=== PATIENT | female | born 1960 | race American Indian/Alaskan Native ===

== ENCOUNTER 2016-10-13 15:01 | Emergency (ER) | payer MEDICAID ==
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
[2016-10-13 15:25] VITALS: BP 140/86
--- NOTE | 2016-10-13 15:35 | CR ---
Clinical history: 56-year-old female injured left knee (fall). 3 views confirm small suprapatellar bursal effusion this patient with chronic severe degenerative an d destructive arthritic changes of patellofemoral and knee joint. No foreign bodies. No sign of right knee fracture, dislocation or radiopaque loose joint body. CONCLUSION: Severe osteoarthritis. No fractures.
[2016-10-13] MEDS ORDERED: Ketorolac 30 MG/ML SDV IM ONE (15:36)
[2016-10-13] MEDS ORDERED: Acetaminophen/HYDROcodone 325-5 MG Tab PO ONE (15:37)
== END 2016-10-13 16:30 | disposition home or self-care (01) ==
LOC: DL.ED 15:01
DX: S83.92XA Sprain of unspecified site of left knee, initial encounter (principal); M17.12 Unilateral primary osteoarthritis, left knee; K21.9 Gastro-esophageal reflux disease without esophagitis; E11.9 Type 2 diabetes mellitus without complications; E66.9 Obesity, unspecified; F41.9 Anxiety disorder, unspecified; Z91.041 Radiographic dye allergy status; Z91.018 Allergy to other foods; Z88.8 Allergy status to other drugs, medicaments and biological substances; W18.09XA Striking against other object with subsequent fall, initial encounter; Y92.009 Unspecified place in unspecified non-institutional (private) residence as the place of occurrence of the external cause
CPT/HCPCS: 73562; 96374; 99283; A9270; J1885

== ENCOUNTER 2016-10-22 17:08 | Emergency (ER) | payer MEDICAID ==
[2016-10-22 17:44] VITALS: BP 145/92
[2016-10-22] MEDS ORDERED: Sodium Chloride 0.9% 10 ML Syringe FLUSH PRN (17:44)
[2016-10-22] MEDS ORDERED: Ketorolac 30 MG/ML SDV IVPUSH ONE (17:44)
[2016-10-22] MEDS ORDERED: cefTRIAXone 500 MG Vial IVPUSH ONE (17:44)
[2016-10-22] MEDS ORDERED: methylPREDNISolone Sodium Succinate 125 MG/2 ML SDV IVPUSH ONE (17:44)
[2016-10-22] MEDS ORDERED: HYDROmorphone 1 MG/ML Syringe IVPUSH ONE (17:45)
[2016-10-22] MEDS ORDERED: Ondansetron 4 MG/2 ML SDV IV ONE (17:45)
[2016-10-22] MEDS ORDERED: cefTRIAXone 1 GM in Sodium Chloride 0.9% 50 ML IV ONE (17:57)
[2016-10-22 18:20] LABS: CHLORIDE,CL 99 mmol/L (101-111); SODIUM,NA 135 mmol/L (135-145)
--- NOTE | 2016-10-24 10:21 | ER ---
SUBJECTIVE: The patient is a 56-year-old female, who has a history of peritonsillar abscess, who comes in today with the same on the left side. It has been going on for 3 days. She is spitting up some blood, having a hard time to swallow her pills or food. She can take some fluid. She has a fever, but cannot take medicines to control it. She does not have any shortness of breath or wheezing, but has a headache and neck pain on the left side radiating up into her ear and head, feels feverish, much pain, and much malaise. Unsure why she waited 3 days to come in. She does have a history of this before. She required a PICC line, hospitalization, and intensive treatment per history. PAST MEDICAL HISTORY: She had tooth extractions, GERD, , osteoarthritis, chronic knee pain, diabetes, obesity, anxiety and panic attack, history of Clostridium difficile, previous peritonsillar abscesses requiring a PICC line and hospitalization. CURRENT MEDICATIONS: Include: 1. Alprazolam 1 tablet p.o. t.i.d. p.r.n. 2. Hydrocodone 1 tablet p.o. daily p.r.n. 3. Ibuprofen 400 mg p.o. p.r.n. ALLERGIES: She is allergic to epinephrine causes difficulty breathing. Lidocaine causes difficulty breathing. Pineapple causes hives. CT dye causes hives. SOCIAL HISTORY: Noncontributory. REVIEW OF SYSTEMS: Headache. Neck pain radiates to the head and left side, sinuses, and ear, it has been going on for 3 days. Painful swallowing, not wanted to swallow pills. Decreased intake of food and fluid because of painful swallowing. No shortness of breath, occasional cough. No nausea or vomiting. No diarrhea, bowel or bladder changes. Denies . Denies trauma or assault. OBJECTIVE: Vital Signs: Her temperature is 100.2, heart rate is 119, blood pressure is 145/92, respiratory rate 16, oxygen is 96% room air. General: She is anxious crying, tearful HEENT: Normocephalic and atraumatic. Right ear is normal. No mastoid issues or sinus issues, but the left is swollen, tense, very painful to her. It affects the left lateral face and neck area. She does answer all questions and can speak in fairly normal voice, oropharynx shows a very large peritonsillar left-sided abscess. It is extended over to the midline. She still has a patent airway. She does have some spitting and drooling, but she is able to swallow her secretions okay. Occasional cough, which hurts her a great deal. When she is able to be made to relax, she does much better. She becomes anxious. Chest: Clear. CV: RR. Skin: Non-unremarkable. LAB/STUDIES: At the time of this note, the patient was getting ready for transfer, a CBC with auto diff, CMP, double blood cultures, lactic acid, were all requested, and they are all pending at this time. They will certainly be sent with the patient as they become available. ER COURSE: The patient was given 1 g of Rocephin IV after cultures were obtained. She was also given 30 mg of IV Toradol and 1 mg of hydromorphone and 4 mg IV Zofran. She was carefully monitored and watched and remained stable, but will definitely need to be transferred to ENT, so she can have this drained while she can have protection of her airway. ASSESSMENT: 1. Very large left peritonsillar abscess, growing over 3 days, now beginning to obstruct airway and oropharynx. 2. History of large peritonsillar abscess requiring PICC line and previous surgical intervention. PLAN: The patient will be transferred via ambulance to Dr. Sawyer at [facility] in [place]. She will go directly to the ER. They will contact ENT. All records will be sent to us when they become available. [facility] /[id number]
== END 2016-10-22 18:52 ==
LOC: DL.ED 17:08
DX: J36 Peritonsillar abscess (principal); K21.9 Gastro-esophageal reflux disease without esophagitis; M19.90 Unspecified osteoarthritis, unspecified site; E11.9 Type 2 diabetes mellitus without complications; E66.9 Obesity, unspecified; F41.9 Anxiety disorder, unspecified; Z88.8 Allergy status to other drugs, medicaments and biological substances; Z91.041 Radiographic dye allergy status; Z91.018 Allergy to other foods
CPT/HCPCS: 36415; 80053; 83605; 85025; 87040; 96365; 96375; 99284; J0696; J1170; J1885; J2405; J2930; J7050

== ENCOUNTER 2016-12-13 23:10 | Emergency (ER) | payer MEDICAID ==
[2016-12-13 23:28] VITALS: BP 114/85
[2016-12-13] MEDS ORDERED: Acetaminophen/HYDROcodone 325-10 MG Tab PO ONE (23:32)
--- NOTE | 2016-12-13 23:35 | EDM.PDOC ---
ED HPI GENERAL MEDICAL PROBLEM - General Chief Complaint: Lower Extremity Injury/Pain Stated Complaint: L KNEE PAIN Time Seen by Provider: 12/13/16 23:26 Source of Information: Reports: Patient History Limitations: Reports: No limitations - History of Present Illness INITIAL COMMENTS - FREE TEXT/NARRATIVE: This 56 yo female patient reports to the ED with chronic left knee pain that gets worse at night. The patient reports she has had increased pain in the past 2 days. The patient has been taking her Athens (5/325) as prescribed and took Aleve today, but continues to have knee pain. The patient reports she contacted her primary (Dr. Keller) and was advised to come to the ED if she has any additional pain. The patient reports she is scheduled to see Dr. James ( Orthopedics) on January 06 to look at getting a knee replacement. The patient reports she is also allergic to Toradol as she gets large red circles around the injection site. The patient reported to the ED with crutches, but no knee brace. The patient reports she does have a knee brace at home, but does not like to wear it because it pushes on her knee. The patient has not attempted to use heat or ice. 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, Other medication(s) Left Knee Pain Score (Numeric/FACES): 8 - Related Data Allergies Allergy/AdvReac Type Severity Reaction Status Date / Time epinephrine Allergy Difficulty Verified 12/13/16 23:31 Breathing Iodinated Contrast Media - Allergy Hives Verified 12/13/16 23:31 Oral and lidocaine Allergy Difficulty Verified 12/13/16 23:31 Breathing pineapple [Pineapple] Allergy Hives Verified 12/13/16 23:31 Home Meds: Home Meds ALPRAZolam [Xanax] 1 tab PO TID PRN 12/26/15 [History] Hydrocodone/Acetaminophen [Hydrocodon-Acetaminophen 5-325] 1 tab PO ASDIRECTED PRN 10/13/16 [History] Ibuprofen 400 mg PO ASDIRECTED PRN 10/13/16 [History] Past Medical History - Past Health History Medical/Surgical History: Denies Medical/Surgical History Cardiovascular History: Reports: None Respiratory History: Reports: None Gastrointestinal History: Reports: GERD 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 History: Reports: None 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: Musculoskeletal History: Reports: Arthritis, Osteoarthritis Other Musculoskeletal History: CHRONIC L)KNEE PAIN Neurological History: Reports: None Psychiatric History: Reports: Anxiety, Panic attack Endocrine/Metabolic History: Reports: Diabetes, type II, Obesity/BMI 30+ Hematologic History: Reports: None Immunologic History: Reports: None Oncologic (Cancer) History: Reports: None - Infectious Disease History Infectious Disease History: Reports: C-difficile - Past Surgical History Other HEENT Surgeries/Procedures: tooth extraction Social & Family History - Family History Family Medical History: Noncontributory Cardiac: Reports: CAD, High cholesterol, Heart failure, Hypertension Respiratory: Reports: Asthma, COPD : Reports: Renal disease/insufficiency Musculoskeletal: Reports: Back pain, chronic Neurological: Reports: CVA Psychiatric: Reports: Anxiety, Depression Endocrine/Metabolic: Reports: Diabetes, type II, Obesity/MBI 30+ - Tobacco Use Smoking Status *Q: Unknown Ever Smoked Second Hand Smoke Exposure: No - Caffeine Use Caffeine Use: Reports: Coffee - Alcohol Use Days Per Week of Alcohol Use: 0 - Recreational Drug Use Recreational Drug Use: No Drug Use in Last 12 Months: No Recreational Drug Type: Reports: Marijuana/Hashish - Living Situation & Occupation Living situation: Reports: with family Occupation: unemployed Review of Systems - Review of Systems Review Of Systems: ROS reveals no pertinent complaints other than HPI. Trauma Exam - Physical Exam Exam: See Below Exam Limited By: No limitations General Appearance: Reports: alert, WD/WN, moderate distress, obese Head: Reports: atraumatic, normocephalic Eyes: bilateral eye: EOMI, normal inspection, PERRL Ears: Reports: normal external exam, normal canal, hearing grossly normal, normal TMs Nose: Reports: normal inspection, normal mucousa, no blood Throat/Mouth: Reports: Normal inspection, Normal lips, Normal teeth, Normal gums , Normal oropharynx, Normal voice, No airway compromise Neck: Reports: non-tender, full range of motion, normal alignment, normal inspection Respiratory Exam: Reports: no respiratory distress, lungs clear, normal breath sounds Cardiovascular: Reports: normal peripheral pulses, regular rate, rhythm, no edema, no gallop, no JVD, no murmur, no rub GI/Abdominal: Reports: Normal Bowel Sounds, Soft, Non-Tender, No Organomegaly, No Distention, No Abnormal Bruit, No Mass (Female) Exam: Deferred Rectal (Female) Exam: Deferred Extremities: Pain with Movement (left knee), Tenderness (left knee) 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, no motor/sensory deficits, alert , normal mood/affect, oriented x 3 Skin: Reports: Normal color, Warm/dry - [place] Coma Score Best Eye Response (Jhonatan): (4) open spontaneously Best Verbal Response (Jhonatan): (5) oriented Best Motor Response ([place]): (6) obeys commands Jhonatan Total: 15 Course - Vital Signs Last Recorded V/S: Last Vital Signs Temp 36.3 C 12/13/16 23:27 Pulse 73 12/13/16 23:27 Resp 20 12/13/16 23:27 BP 114/85 12/13/16 23:27 Pulse Ox 100 12/13/16 23:27 - Orders/Labs/Meds Meds: Medications Discontinued Medications Generic Name Dose Route Start Last Admin Trade Name Reza PRN Reason Stop Dose Admin Hydrocodone Bitart/Acetaminophen 1 tab 12/13/16 23:32 Athens 325-10 Mg PO 12/13/16 23:33 ONETIME ONE Departure - Departure Time of Disposition: 11:33 Disposition: Home, Self-Care 01 Condition: fair Clinical Impression: Chronic pain of left knee - Discharge Information Instructions: Pain Medicine Instructions, Dipy-ho-Cumn, Knee Pain Forms: ED Department Discharge Care Plan Goals: The patient was advised of the examination results during the visit. The patient was given an oral dose of [place] (10/325) while in the ED. The patient was encouraged to contact her primary care facility and the business office specialist for continued evaluation and management. If the patient has any additional symptoms or concerns, the patient should visit her primary care facility.
== END 2016-12-13 23:43 | disposition home or self-care (01) ==
LOC: DL.ED 23:10
DX: M25.562 Pain in left knee (principal); G89.29 Other chronic pain; K21.9 Gastro-esophageal reflux disease without esophagitis; F41.9 Anxiety disorder, unspecified; E11.9 Type 2 diabetes mellitus without complications; E66.9 Obesity, unspecified; Z88.8 Allergy status to other drugs, medicaments and biological substances
CPT/HCPCS: 99283; A9270

== ENCOUNTER 2016-12-22 20:37 | Emergency (ER) | payer MEDICAID, OTHER ==
[2016-12-22] MEDS ORDERED: Promethazine 25 MG/ML SDV IM ONE (21:45)
[2016-12-22] MEDS ORDERED: Morphine 2 MG/ML Syringe IM ONE (21:45)
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
[2016-12-22] MEDS ORDERED: Acetaminophen/HYDROcodone 325-10 MG Tab PO ONE (23:27)
== END 2016-12-22 23:38 | disposition home or self-care (01) ==
LOC: DL.ED 20:37
DX: S80.02XA Contusion of left knee, initial encounter (principal); M62.830 Muscle spasm of back; K21.9 Gastro-esophageal reflux disease without esophagitis; F41.9 Anxiety disorder, unspecified; E11.9 Type 2 diabetes mellitus without complications; E66.9 Obesity, unspecified; M19.90 Unspecified osteoarthritis, unspecified site; Z88.8 Allergy status to other drugs, medicaments and biological substances; Z91.018 Allergy to other foods; V49.9XXA Car occupant (driver) (passenger) injured in unspecified traffic accident, initial encounter
CPT/HCPCS: 72080; 73562; 96372; 99284; A9270; J2270; J2550

== ENCOUNTER 2017-04-01 13:29 | Emergency (ER) | payer MEDICAID ==
[2017-04-01 16:12] VITALS: BP 124/96
[2017-04-01] MEDS ORDERED: Ketorolac 30 MG/ML SDV IM ONE (16:49)
--- NOTE | 2017-04-01 16:50 | EDM.PDOC ---
<Ulisses Diaz - Last Filed: 04/01/17 20:20> ED HPI GENERAL MEDICAL PROBLEM - General Chief Complaint: Lower Extremity Injury/Pain Stated Complaint: RT LEG INFECTED Time Seen by Provider: 04/01/17 16:44 - Related Data Allergies Allergy/AdvReac Type Severity Reaction Status Date / Time epinephrine Allergy Difficulty Verified 04/01/17 14:33 Breathing Iodinated Contrast- Oral and Allergy Hives Verified 04/01/17 14:33 IV Dye [Iodinated Contrast Media - Oral and] ketorolac [From Toradol] Allergy Rash Verified 04/01/17 17:06 lidocaine Allergy Difficulty Verified 04/01/17 14:33 Breathing pineapple [Pineapple] Allergy Hives Verified 04/01/17 14:33 Home Meds: Home Meds ALPRAZolam [Xanax] 1 tab PO TID PRN 12/26/15 [History] Hydrocodone/Acetaminophen [Hydrocodon-Acetaminophen 5-325] 1 tab PO ASDIRECTED PRN 10/13/16 [History] Ibuprofen 800 mg PO ASDIRECTED PRN 10/13/16 [History] Review of Systems - Review of Systems Review Of Systems: ROS reveals no pertinent complaints other than HPI. ED EXAM, GENERAL - Physical Exam Exam: See Below Exam Limited By: No Limitations General Appearance: Alert, WD/WN, Mild Distress, Other (pain) Ears: Hearing Grossly Normal Throat/Mouth: Normal Voice, No Airway Compromise Head: Atraumatic Neck: Non-Tender, Full Range of Motion Respiratory/Chest: No Respiratory Distress Cardiovascular: Regular Rate, Rhythm GI/Abdominal: Soft, Non-Tender Extremities: Other (right leg wound dehiscence with cellulitis mild lymphangitis , NV wnl) Neurological: Alert, Oriented, Normal Cognition, No Motor/Sensory Deficits, Other (gait limited to pain) Psychiatric: Tearful Skin Exam: Warm, Dry, Normal Color Lymphatic: No Adenopathy Course - Vital Signs Last Recorded V/S: Last Vital Signs Temp 97.3 F 04/01/17 16:12 Pulse 75 04/01/17 16:12 Resp 18 04/01/17 16:12 BP 124/96 H 04/01/17 16:12 Pulse Ox 100 04/01/17 16:12 - Orders/Labs/Meds Orders: Active Orders 24 hr Category Date Time Status CULTURE BLOOD [BC] Stat Lab 04/01/17 18:55 Received Labs: Laboratory Tests 04/01/17 04/01/17 04/01/17 Range/Units 17:05 17:05 17:05 WBC 9.2 (5.0-10.0) 10^3/uL RBC 4.56 (4.2-5.4) 10^6/uL Hgb 12.0 (12.0-16.0) g/dL Hct 38.0 (37.0-47.0) % MCV 83.3 (80-100) fL MCH 26.3 L (27.0-34.0) pg MCHC 31.6 L (33.0-35.0) g/dL Plt Count 368 (150-450) 10^3/uL Neut % (Auto) 46.0 (42.2-75.2) % Lymph % (Auto) 42.6 (20.5-50.1) % Charles % (Auto) 5.2 (2-8) % Eos % (Auto) 6.0 H (1.0-3.0) % Baso % (Auto) 0.2 (0.0-1.0) % Sodium 143 (135-145) mmol/L Potassium 3.7 (3.6-5.0) mmol/L Chloride 106 (101-111) mmol/L Carbon Dioxide 27.0 (21.0-31.0) mmol/L Anion Gap 13.7 BUN 13 (7-18) mg/dL Creatinine 0.6 (0.6-1.3) mg/dL Est Cr Clr Drug Dosing 92.56 mL/min Estimated GFR (MDRD) > 60 Glucose 113 H (74-105) mg/dL Lactic Acid (0.5-2.2) mmol/L Calcium 8.9 (8.4-10.2) mg/dl C-Reactive Protein 2.6 H (0.0-1.3) mg/dL 04/01/17 Range/Units 18:55 WBC (5.0-10.0) 10^3/uL RBC (4.2-5.4) 10^6/uL Hgb (12.0-16.0) g/dL Hct (37.0-47.0) % MCV (80-100) fL MCH (27.0-34.0) pg MCHC (33.0-35.0) g/dL Plt Count (150-450) 10^3/uL Neut % (Auto) (42.2-75.2) % Lymph % (Auto) (20.5-50.1) % Charles % (Auto) (2-8) % Eos % (Auto) (1.0-3.0) % Baso % (Auto) (0.0-1.0) % Sodium (135-145) mmol/L Potassium (3.6-5.0) mmol/L Chloride (101-111) mmol/L Carbon Dioxide (21.0-31.0) mmol/L Anion Gap BUN (7-18) mg/dL Creatinine (0.6-1.3) mg/dL Est Cr Clr Drug Dosing mL/min Estimated GFR (MDRD) Glucose (74-105) mg/dL Lactic Acid 1.1 (0.5-2.2) mmol/L Calcium (8.4-10.2) mg/dl C-Reactive Protein (0.0-1.3) mg/dL Meds: Medications Discontinued Medications Generic Name Dose Route Start Last Admin Trade Name Freq PRN Reason Stop Dose Admin Hydromorphone HCl 1 mg 04/01/17 20:37 04/01/17 20:41 Dilaudid IVPUSH 04/01/17 20:38 1 mg ONETIME ONE Administration Clindamycin Phosphate 900 mg/ 106 mls @ 200 mls/hr 04/01/17 18:46 04/01/17 19 :11 Sodium Chloride IV 04/01/17 19:17 200 mls/hr ONETIME ONE Administration Sodium Chloride 1,000 mls @ 500 mls/hr 04/01/17 18:46 04/01/17 19:05 Normal Saline IV 04/01/17 20:45 500 mls/hr .BOLUS ONE Administration Ketorolac Tromethamine 30 mg 04/01/17 16:49 04/01/17 17:25 Toradol IM 04/01/17 16:50 Not Given ONETIME ONE Morphine Sulfate 2 mg 04/01/17 18:46 04/01/17 19:08 Morphine IVPUSH 04/01/17 18:47 2 mg ONETIME ONE Administration Ondansetron HCl 4 mg 04/01/17 18:46 04/01/17 19:06 Zofran IV 04/01/17 18:47 4 mg ONETIME ONE Administration Tramadol HCl 100 mg 04/01/17 17:10 04/01/17 17:25 Ultram PO 04/01/17 17:11 Not Given ONETIME ONE - Re-Assessments/Exams Free Text/Narrative Re-Assessment/Exam: 04/01/17 18:47 re-exam; s/p flavio 2 week ago, wound looks worse. right soria wound dehiscence local cellulitis minimal lymphangitis, no exudate. partial staple removal from clinic. 04/01/17 20:[address] Mullins who came to evnh' wound and rec' for surgical consult. Dr Cesar @ kindly accepted pt. Departure - Departure Time of Disposition: 20:21 Disposition: DC/Tfer to [facility] 02 Condition: Fair Clinical Impression: Wound infection, posttraumatic, Cellulitis of leg without foot, right, Wound dehiscence - Discharge Information Referrals: PCP,None [Ordering Only Provider] - Forms: Interfacility Transfer EMTALA <Ca Barba - Last Filed: 04/02/17 07:04> ED HPI GENERAL MEDICAL PROBLEM - General Source of Information: Reports: Patient History Limitations: Reports: No Limitations - History of Present Illness INITIAL COMMENTS - FREE TEXT/NARRATIVE: 56 yo female presents with pain to right soria s/p open wound from fall 2 weeks ago. was seen in clinic and had some flavio removed and started on antibiotic, pt believes to be doxycycline. C/o warmth, drainage and pain. no other complaints. 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: Musculoskeletal History: Reports: Arthritis, Osteoarthritis Other Musculoskeletal History: CHRONIC L)KNEE PAIN Neurological History: Reports: None Psychiatric History: Reports: Anxiety, Panic Attack Endocrine/Metabolic History: Reports: Diabetes, Type II, Obesity/BMI 30+ Hematologic History: Reports: None Immunologic History: Reports: None Oncologic (Cancer) History: Reports: None Dermatologic History: Reports: None - Infectious Disease History Infectious Disease History: Reports: C-Difficile - Past Surgical History HEENT Surgical History: Reports: Other (See Below) Social & Family History - Family History Family Medical History: Noncontributory Cardiac: Reports: CAD, High Cholesterol, Heart Failure, Hypertension Respiratory: Reports: Asthma, COPD : Reports: Renal Disease/Insufficiency Musculoskeletal: Reports: Back pain, Chronic Neurological: Reports: CVA Psychiatric: Reports: Anxiety, Depression Endocrine/Metabolic: Reports: Diabetes, type II, Obesity/MBI 30+ - Tobacco Use Smoking Status *Q: Never Smoker Second Hand Smoke Exposure: No - Caffeine Use Caffeine Use: Reports: Coffee - Alcohol Use Days Per Week of Alcohol Use: 0 - Recreational Drug Use Recreational Drug Use: No Drug Use in Last 12 Months: No Recreational Drug Type: Reports: Marijuana/Hashish - Living Situation & Occupation Living situation: Reports: with Family Occupation: Unemployed ED EXAM, GENERAL - Physical Exam Skin Exam: Wound/Incision (v shaped laceration with necrotic area at anterior borders, [address] to right wound margin, [address] to left wound margins. No drainage noted. Open wound to inferior margin. ) Course - Orders/Labs/Meds Orders: Active Orders 24 hr Category Date Time Status CULTURE BLOOD [BC] Stat Lab 04/01/17 18:55 Received Labs: Laboratory Tests 04/01/17 04/01/17 04/01/17 Range/Units 17:05 17:05 17:05 WBC 9.2 (5.0-10.0) 10^3/uL RBC 4.56 (4.2-5.4) 10^6/uL Hgb 12.0 (12.0-16.0) g/dL Hct 38.0 (37.0-47.0) % MCV 83.3 (80-100) fL MCH 26.3 L (27.0-34.0) pg MCHC 31.6 L (33.0-35.0) g/dL Plt Count 368 (150-450) 10^3/uL Neut % (Auto) 46.0 (42.2-75.2) % Lymph % (Auto) 42.6 (20.5-50.1) % Charles % (Auto) 5.2 (2-8) % Eos % (Auto) 6.0 H (1.0-3.0) % Baso % (Auto) 0.2 (0.0-1.0) % Sodium 143 (135-145) mmol/L Potassium 3.7 (3.6-5.0) mmol/L Chloride 106 (101-111) mmol/L Carbon Dioxide 27.0 (21.0-31.0) mmol/L Anion Gap 13.7 BUN 13 (7-18) mg/dL Creatinine 0.6 (0.6-1.3) mg/dL Est Cr Clr Drug Dosing 92.56 mL/min Estimated GFR (MDRD) > 60 Glucose 113 H (74-105) mg/dL Lactic Acid (0.5-2.2) mmol/L Calcium 8.9 (8.4-10.2) mg/dl C-Reactive Protein 2.6 H (0.0-1.3) mg/dL 04/01/17 Range/Units 18:55 WBC (5.0-10.0) 10^3/uL RBC (4.2-5.4) 10^6/uL Hgb (12.0-16.0) g/dL Hct (37.0-47.0) % MCV (80-100) fL MCH (27.0-34.0) pg MCHC (33.0-35.0) g/dL Plt Count (150-450) 10^3/uL Neut % (Auto) (42.2-75.2) % Lymph % (Auto) (20.5-50.1) % Charles % (Auto) (2-8) % Eos % (Auto) (1.0-3.0) % Baso % (Auto) (0.0-1.0) % Sodium (135-145) mmol/L Potassium (3.6-5.0) mmol/L Chloride (101-111) mmol/L Carbon Dioxide (21.0-31.0) mmol/L Anion Gap BUN (7-18) mg/dL Creatinine (0.6-1.3) mg/dL Est Cr Clr Drug Dosing mL/min Estimated GFR (MDRD) Glucose (74-105) mg/dL Lactic Acid 1.1 (0.5-2.2) mmol/L Calcium (8.4-10.2) mg/dl C-Reactive Protein (0.0-1.3) mg/dL Meds: Medications Discontinued Medications Generic Name Dose Route Start Last Admin Trade Name Reza PRN Reason Stop Dose Admin Hydromorphone HCl 1 mg 04/01/17 20:37 04/01/17 20:41 Dilaudid IVPUSH 04/01/17 20:38 1 mg ONETIME ONE Administration Clindamycin Phosphate 900 mg/ 106 mls @ 200 mls/hr 04/01/17 18:46 04/01/17 19 :11 Sodium Chloride IV 04/01/17 19:17 200 mls/hr ONETIME ONE Administration Sodium Chloride 1,000 mls @ 500 mls/hr 04/01/17 18:46 04/01/17 19:05 Normal Saline IV 04/01/17 20:45 500 mls/hr .BOLUS ONE Administration Ketorolac Tromethamine 30 mg 04/01/17 16:49 04/01/17 17:25 Toradol IM 04/01/17 16:50 Not Given ONETIME ONE Morphine Sulfate 2 mg 04/01/17 18:46 04/01/17 19:08 Morphine IVPUSH 04/01/17 18:47 2 mg ONETIME ONE Administration Ondansetron HCl 4 mg 04/01/17 18:46 04/01/17 19:06 Zofran IV 04/01/17 18:47 4 mg ONETIME ONE Administration Tramadol HCl 100 mg 04/01/17 17:10 04/01/17 17:25 Ultram PO 04/01/17 17:11 Not Given ONETIME ONE
[2017-04-01] MEDS ORDERED: traMADol 50 MG Tab PO ONE (17:10)
[2017-04-01 17:42] LABS: CHLORIDE,CL 106 mmol/L (101-111); SODIUM,NA 143 mmol/L (135-145)
[2017-04-01] MEDS ORDERED: Morphine 2 MG/ML Syringe IVPUSH ONE (18:46)
[2017-04-01] MEDS ORDERED: Sodium Chloride 0.9% 1,000 ML IV ONE (18:46)
[2017-04-01] MEDS ORDERED: Ondansetron 4 MG/2 ML SDV IV ONE (18:46)
[2017-04-01] MEDS ORDERED: Clindamycin Phosphate 900 MG in Sodium Chloride 0.9% 100 ML IV ONE (18:46)
[2017-04-01] MEDS ORDERED: HYDROmorphone 1 MG/ML Syringe IVPUSH ONE (20:37)
== END 2017-04-01 21:05 ==
LOC: DL.ED 13:29
DX: T81.33XA Disruption of traumatic injury wound repair, initial encounter (principal); L03.115 Cellulitis of right lower limb; M19.90 Unspecified osteoarthritis, unspecified site; F41.0 Panic disorder [episodic paroxysmal anxiety]; E66.9 Obesity, unspecified; E11.9 Type 2 diabetes mellitus without complications; Z88.6 Allergy status to analgesic agent; Z88.8 Allergy status to other drugs, medicaments and biological substances; Z91.041 Radiographic dye allergy status; Z68.41 Body mass index [BMI] 40.0-44.9, adult
CPT/HCPCS: 36415; 73590; 80048; 83605; 85025; 86140; 87040; 96361; 96365; 96375; 99285; J1170; J2270; J2405; J7030; J7050; S0077

== ENCOUNTER 2017-04-16 19:27 | Emergency (ER) | payer MEDICAID ==
[2017-04-16 20:39] VITALS: BP 132/75
[2017-04-16] MEDS ORDERED: HYDROmorphone 1 MG/ML Syringe IM ONE (21:34)
--- NOTE | 2017-04-16 21:39 | EDM.PDOC ---
ED HPI GENERAL MEDICAL PROBLEM - General Chief Complaint: Lower Extremity Injury/Pain Stated Complaint: HAD SURGERY ON LEG, PAIN [id number] Time Seen by Provider: 04/16/17 21:30 Source of Information: Reports: Patient History Limitations: Reports: No Limitations - History of Present Illness INITIAL COMMENTS - FREE TEXT/NARRATIVE: This 56 yo female patient reports to the ED with increased pain in her right lower leg and right lateral thigh. The patient recently got out of [facility] in [place] this past week (Monday). The patient reports she has been taking her pain medications as directed, but continues to have pain in the leg. 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 Right Upper Leg Pain Score (Numeric/FACES): 7 Right Lower Leg Pain Score (Numeric/FACES): 6 - Related Data Allergies Allergy/AdvReac Type Severity Reaction Status Date / Time epinephrine Allergy Difficulty Verified 04/16/17 20:39 Breathing Iodinated Contrast- Oral and Allergy Hives Verified 04/16/17 20:39 IV Dye [Iodinated Contrast Media - Oral and] ketorolac [From Toradol] Allergy Rash Verified 04/16/17 20:39 lidocaine Allergy Difficulty Verified 04/16/17 20:39 Breathing pineapple [Pineapple] Allergy Hives Verified 04/16/17 20:39 Home Meds: Home Meds ALPRAZolam [Xanax] 1 tab PO TID PRN 12/26/15 [History] Hydrocodone/Acetaminophen [Hydrocodon-Acetaminophen 5-325] 1 tab PO ASDIRECTED PRN 10/13/16 [History] Amoxicillin/Potassium Clav [Augmentin 875-125 Tablet] 1 tab PO BID 04/16/17 [ History] Omeprazole 20 mg PO DAILY PRN 04/16/17 [History] metFORMIN [Glucophage XR] 500 mg PO BIDMEALS 04/16/17 [History] Past Medical History - Past Health History Medical/Surgical History: Denies Medical/Surgical History HEENT History: Reports: None Cardiovascular History: Reports: None Respiratory History: Reports: None Gastrointestinal History: Reports: GERD 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: Musculoskeletal History: Reports: Arthritis, Osteoarthritis Other Musculoskeletal History: CHRONIC L)KNEE PAIN Neurological History: Reports: None Psychiatric History: Reports: Anxiety, Panic Attack Endocrine/Metabolic History: Reports: Diabetes, Type II, Obesity/BMI 30+ Hematologic History: Reports: None Immunologic History: Reports: None Oncologic (Cancer) History: Reports: None Dermatologic History: Reports: Other (See Below) Other Dermatologic History: skin graft to right lower leg - Infectious Disease History Infectious Disease History: Reports: C-Difficile - Past Surgical History HEENT Surgical History: Reports: Other (See Below) Social & Family History - Family History Family Medical History: Noncontributory Cardiac: Reports: CAD, High Cholesterol, Heart Failure, Hypertension Respiratory: Reports: Asthma, COPD : Reports: Renal Disease/Insufficiency Musculoskeletal: Reports: Back pain, Chronic Neurological: Reports: CVA Psychiatric: Reports: Anxiety, Depression Endocrine/Metabolic: Reports: Diabetes, type II, Obesity/MBI 30+ - Tobacco Use Smoking Status *Q: Unknown Ever Smoked Second Hand Smoke Exposure: No - Caffeine Use Caffeine Use: Reports: Coffee - Alcohol Use Days Per Week of Alcohol Use: 0 - Recreational Drug Use Recreational Drug Use: No Drug Use in Last 12 Months: No Recreational Drug Type: Reports: Marijuana/Hashish - Living Situation & Occupation Living situation: Reports: with Family Occupation: Unemployed Review of Systems - Review of Systems Review Of Systems: ROS reveals no pertinent complaints other than HPI. ED EXAM, GENERAL - Physical Exam Exam: See Below Exam Limited By: No Limitations General Appearance: Alert, WD/WN, Mild Distress, Obese Eye Exam: Bilateral Eye: EOMI, Normal Inspection, PERRL Ears: Normal External Exam Nose: Normal Inspection, Normal Mucosa, No Blood Throat/Mouth: Normal Inspection, Normal Lips, Normal Teeth, Normal Gums, Normal Oropharynx, Normal Voice, No Airway Compromise Head: Atraumatic, Normocephalic Neck: Normal Inspection, Supple, Non-Tender, Full Range of Motion Respiratory/Chest: No Respiratory Distress, Lungs Clear, Normal Breath Sounds, No Accessory Muscle Use, Chest Non-Tender Cardiovascular: Normal Peripheral Pulses, Regular Rate, Rhythm, No Edema, No Gallop, No JVD, No Murmur, No Rub GI/Abdominal: Normal Bowel Sounds, Soft, Non-Tender, No Organomegaly, No Distention, No Abnormal Bruit, No Mass (Female) Exam: Deferred Rectal (Female) Exam: Deferred Back Exam: Normal Inspection, Full Range of Motion, NT Extremities: Other (The patients surgical sites appear to be healing appropriately with no apparent drainage) Neurological: Alert, Oriented, CN II-XII Intact, Normal Cognition, Normal Gait, Normal Reflexes, No Motor/Sensory Deficits Psychiatric: Normal Affect, Normal Mood Skin Exam: Warm, Dry, Intact, Normal Color, No Rash Lymphatic: No Adenopathy Course - Vital Signs Last Recorded V/S: Last Vital Signs Temp 36.7 C 04/16/17 20:20 Pulse 60 04/16/17 20:20 Resp 20 04/16/17 20:20 BP 132/75 04/16/17 20:20 Pulse Ox 100 04/16/17 20:20 - Orders/Labs/Meds Orders: Active Orders 24 hr Category Date Time Status HYDROmorphone [Dilaudid] Med 04/16/17 21:34 Once 1 mg IM ONETIME ONE Departure - Departure Time of Disposition: 21:39 Disposition: Home, Self-Care 01 Condition: Fair Clinical Impression: Right leg pain - Discharge Information Care Plan Goals: The patient was advised of the examination results during the visit. The patient was given an injection of Dilaudid while in the ED. The patient was encouraged to rest and elevate her right extremity. The patient should contact her surgeon regarding the continued pain. If the patient has any additional symptoms or concerns, the patient should follow-up with her primary care facility or return to the emergency department. - My Orders Last 24 Hours: My Active Orders 04/16/17 21:34 HYDROmorphone [Dilaudid] 1 mg IM ONETIME ONE - Assessment/Plan Last 24 Hours: My Active Orders 04/16/17 21:34 HYDROmorphone [Dilaudid] 1 mg IM ONETIME ONE
== END 2017-04-16 21:55 | disposition home or self-care (01) ==
LOC: DL.ED 19:27
DX: M79.661 Pain in right lower leg (principal); M79.651 Pain in right thigh; K21.9 Gastro-esophageal reflux disease without esophagitis; F41.0 Panic disorder [episodic paroxysmal anxiety]; E66.9 Obesity, unspecified; E11.9 Type 2 diabetes mellitus without complications; Z79.899 Other long term (current) drug therapy; Z88.6 Allergy status to analgesic agent; Z88.8 Allergy status to other drugs, medicaments and biological substances; Z91.041 Radiographic dye allergy status; Z91.018 Allergy to other foods; Z68.41 Body mass index [BMI] 40.0-44.9, adult; Z79.84 Long term (current) use of oral hypoglycemic drugs
CPT/HCPCS: 96372; 99283; J1170

== ENCOUNTER 2017-11-07 20:24 | Emergency (ER) | payer MEDICAID ==
[2017-11-07] MEDS ORDERED: ALPRAZolam 0.5 MG Tab PO ONE ×2 (20:25→21:35)
[2017-11-07] MEDS ORDERED: Aspirin 81 MG Tab.Chew PO ONE (20:39)
[2017-11-07 21:13] LABS: ANION GAP 10.3; CHLORIDE,CL 102 mmol/L (101-111); SODIUM,NA 134 mmol/L (135-145)
--- NOTE | 2017-11-07 21:44 | EDM.PDOC ---
ED HPI GENERAL MEDICAL PROBLEM - General Chief Complaint: Cardiovascular Problem Stated Complaint: [id number] THINKS HEART ATTACK NAUSEA TINGLING FINGER Time Seen by Provider: 11/07/17 20:50 Source of Information: Reports: Patient History Limitations: Reports: No Limitations - History of Present Illness INITIAL COMMENTS - FREE TEXT/NARRATIVE: This 57 yo female patient reports to the ED with increased anxiety, chest pain and numbness and tingling in her fingers (both hands). The patient reports she has been under a lot of stress lately, but today it really got to her. The patient reports she has been previously diagnosed with anxiety, but ran out of her Xanax and did not attempt to call her clinic to have it refilled. The patient reports when she was sitting at home, the patient began to have increased symptoms and vomited. After vomiting, the patient noticed the tingling in her hands. The patient then began to have anxiety of possibly having a heart attack. Onset: Today Onset Date: 11/20/17 Duration: Constant Location: Reports: Generalized Quality: Reports: Ache, Dull Severity: Moderate Improves with: Reports: None Worsens with: Reports: None Associated Symptoms: Reports: No Other Symptoms - Related Data Allergies Allergy/AdvReac Type Severity Reaction Status Date / Time epinephrine Allergy Difficulty Verified 11/07/17 20:46 Breathing Iodinated Contrast- Oral and Allergy Hives Verified 11/07/17 20:46 IV Dye [Iodinated Contrast Media - Oral and] ketorolac [From Toradol] Allergy Rash Verified 11/07/17 20:46 lidocaine Allergy Difficulty Verified 11/07/17 20:46 Breathing pineapple [Pineapple] Allergy Hives Verified 11/07/17 20:46 Home Meds: Home Meds ALPRAZolam [Xanax] 1 tab PO TID PRN 12/26/15 [History] Omeprazole 20 mg PO DAILY PRN 04/16/17 [History] metFORMIN [Glucophage XR] 500 mg PO BIDMEALS 04/16/17 [History] oxyCODONE 5 mg PO TID 11/07/17 [History] Past Medical History - Past Health History Medical/Surgical History: Denies Medical/Surgical History HEENT History: Reports: None, Impaired Vision Cardiovascular History: Reports: None Respiratory History: Reports: None Gastrointestinal History: Reports: GERD 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 History: Reports: None 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: Musculoskeletal History: Reports: Arthritis, Osteoarthritis Other Musculoskeletal History: CHRONIC L)KNEE PAIN Neurological History: Reports: None Psychiatric History: Reports: Anxiety, Panic Attack Endocrine/Metabolic History: Reports: Diabetes, Type II, Obesity/BMI 30+ Hematologic History: Reports: None Immunologic History: Reports: None Oncologic (Cancer) History: Reports: None Dermatologic History: Reports: Other (See Below) Other Dermatologic History: skin graft to right lower leg - Infectious Disease History Infectious Disease History: Reports: Chicken Pox - Past Surgical History HEENT Surgical History: Reports: Tonsillectomy, Other (See Below) Social & Family History - Family History Family Medical History: Noncontributory Cardiac: Reports: CAD, High Cholesterol, Heart Failure, Hypertension Other Cardiac Family History: Mother Respiratory: Reports: Asthma, COPD : Reports: Renal Disease/Insufficiency Other Family History: Sister. Musculoskeletal: Reports: Back pain, Chronic Neurological: Reports: CVA Psychiatric: Reports: Anxiety, Depression Endocrine/Metabolic: Reports: Diabetes, type II, Obesity/MBI 30+ - Tobacco Use Smoking Status *Q: Never Smoker Second Hand Smoke Exposure: Yes - Caffeine Use Caffeine Use: Reports: Coffee - Alcohol Use Days Per Week of Alcohol Use: 0 - Recreational Drug Use Recreational Drug Use: No Drug Use in Last 12 Months: No Recreational Drug Type: Reports: Marijuana/Hashish - Living Situation & Occupation Living situation: Reports: with Family Occupation: Unemployed ED ROS GENERAL - Review of Systems Review Of Systems: ROS reveals no pertinent complaints other than HPI. ED EXAM, GENERAL - Physical Exam Exam: See Below Exam Limited By: No Limitations General Appearance: Alert, WD/WN, Anxious, Moderate Distress Eye Exam: Bilateral Eye: EOMI, Normal Inspection, PERRL Ears: Normal External Exam, Normal Canal, Hearing Grossly Normal, Normal TMs Nose: Normal Inspection, Normal Mucosa, No Blood Throat/Mouth: Normal Inspection, Normal Lips, Normal Teeth, Normal Gums, Normal Oropharynx, Normal Voice, No Airway Compromise Head: Atraumatic, Normocephalic Neck: Normal Inspection, Supple, Non-Tender, Full Range of Motion Respiratory/Chest: No Respiratory Distress, Lungs Clear, Normal Breath Sounds, No Accessory Muscle Use, Chest Non-Tender Cardiovascular: Normal Peripheral Pulses, Regular Rate, Rhythm, No Edema, No Gallop, No JVD, No Murmur, No Rub GI/Abdominal: Normal Bowel Sounds, Soft, Non-Tender, No Organomegaly, No Distention, No Abnormal Bruit, No Mass (Female) Exam: Deferred Rectal (Female) Exam: Deferred Back Exam: Normal Inspection, Full Range of Motion, NT Extremities: Normal Inspection, Normal Range of Motion, Non-Tender, Normal Capillary Refill, No Pedal Edema Neurological: Alert, Oriented, CN II-XII Intact, Normal Cognition, Normal Gait, Normal Reflexes, No Motor/Sensory Deficits Psychiatric: Anxious Skin Exam: Warm, Dry, Intact, Normal Color, No Rash Lymphatic: No Adenopathy Course - Vital Signs Last Recorded V/S: Last Vital Signs Temp 35.7 C 11/07/17 21:42 Pulse 59 L 11/07/17 21:42 Resp 12 11/07/17 21:42 BP 140/68 11/07/17 21:42 Pulse Ox 100 11/07/17 21:42 - Orders/Labs/Meds Orders: Active Orders 24 hr Category Date Time Status EKG Documentation Completion [RC] URGENT Care 11/07/17 20:38 Active Labs: Laboratory Tests 11/07/17 11/07/17 Range/Units 20:43 20:43 WBC 12.5 H (5.0-10.0) 10^3/uL RBC 4.69 (4.2-5.4) 10^6/uL Hgb 12.3 (12.0-16.0) g/dL Hct 38.2 (37.0-47.0) % MCV 81.4 (80-100) fL MCH 26.2 L (27.0-34.0) pg MCHC 32.2 L (33.0-35.0) g/dL Plt Count 389 (150-450) 10^3/uL Neut % (Auto) 58.4 (42.2-75.2) % Lymph % (Auto) 35.0 (20.5-50.1) % Upson % (Auto) 5.4 (2-8) % Eos % (Auto) 1.0 (1.0-3.0) % Baso % (Auto) 0.2 (0.0-1.0) % Sodium 134 L (135-145) mmol/L Potassium 3.3 L (3.6-5.0) mmol/L Chloride 102 (101-111) mmol/L Carbon Dioxide 25.0 (21.0-31.0) mmol/L Anion Gap 10.3 BUN 12 (7-18) mg/dL Creatinine 0.7 (0.6-1.3) mg/dL Est Cr Clr Drug Dosing 78.41 mL/min Estimated GFR (MDRD) > 60 BUN/Creatinine Ratio 17.14 Glucose 111 H (74-105) mg/dL Calcium 9.1 (8.4-10.2) mg/dl Total Bilirubin 0.5 (0.2-1.0) mg/dL AST 20 (10-42) IU/L ALT 19 (10-60) IU/L Alkaline Phosphatase 109 (42-121) IU/L Troponin I < 0.02 (0.00-0.02) ng/ml Total Protein 8.1 (6.7-8.2) g/dl Albumin 3.9 (3.2-5.5) g/dl Globulin 4.2 Albumin/Globulin Ratio 0.93 Meds: Medications Discontinued Medications Generic Name Dose Route Start Last Admin Trade Name Freq PRN Reason Stop Dose Admin Alprazolam 0.5 mg 11/07/17 21:35 11/07/17 21:41 Xanax PO 11/07/17 21:36 0.5 mg ONETIME ONE Administration Aspirin 324 mg 11/07/17 20:39 11/07/17 20:48 Aspirin PO 11/07/17 20:40 324 mg ONETIME ONE Administration Departure - Departure Time of Disposition: 22:12 Disposition: Home, Self-Care 01 Condition: Fair Clinical Impression: Anxiety Instructions: Panic Attacks, [id number] Forms: ED Department Discharge Care Plan Goals: The patient was advised of the examination, lab and EKG results during the visit. The patient was given an oral dose of Xanax while in the ED. The patient was discharged with Xanax (0.5 mg) #2 to take 1 by mouth every 6 hours as needed for anxiety. The patient was encouraged to follow-up with her primary care facility tomorrow for continued evaluation and management. If the patient has any additional symptoms or concerns, the patient should visit her primary care facility or return to the emergency department. - My Orders Last 24 Hours: My Active Orders 11/07/17 20:38 EKG Documentation Completion [RC] URGENT - Assessment/Plan Last 24 Hours: My Active Orders 11/07/17 20:38 EKG Documentation Completion [RC] URGENT
[2017-11-07] MEDS ORDERED: ALPRAZolam 0.5 MG Tab ONE (22:15)
[2017-11-07 22:20] VITALS: BP 138/60
--- NOTE | 2017-11-08 13:59 | EKG ---
11/07/2017- DEL MMCAHON - FINDINGS: EKG, per my reading, shows sinus rhythm at the rate of 69. MOD /[id number]
== END 2017-11-07 22:20 | disposition home or self-care (01) ==
LOC: DL.ED 20:24
DX: F41.9 Anxiety disorder, unspecified (principal); E11.9 Type 2 diabetes mellitus without complications; Z88.8 Allergy status to other drugs, medicaments and biological substances; Z91.041 Radiographic dye allergy status; Z88.6 Allergy status to analgesic agent; Z91.018 Allergy to other foods; Z79.84 Long term (current) use of oral hypoglycemic drugs; Z79.899 Other long term (current) drug therapy
CPT/HCPCS: 36415; 80053; 84484; 85025; 93005; 99284; A9270

== ENCOUNTER 2017-11-11 00:40 | Emergency (ER) | payer MEDICAID ==
[2017-11-11 00:56] VITALS: BP 151/81
[2017-11-11] MEDS ORDERED: LORazepam 2 MG/ML Syringe IVPUSH ONE ×2 (01:12→02:36)
[2017-11-11] MEDS: Sodium Chloride 0.9% 10 ML Syringe FLUSH PRN ×2 (01:31→02:43)
[2017-11-11 02:11] LABS: CHLORIDE,CL 104 mmol/L (101-111); SODIUM,NA 136 mmol/L (135-145)
--- NOTE | 2017-11-11 02:26 | EDM.PDOC ---
ED HPI GENERAL MEDICAL PROBLEM - General Chief Complaint: Respiratory Problem Stated Complaint: AMBULANCE-ANXIETY, SOB Time Seen by Provider: 11/11/17 01:02 Source of Information: Reports: Patient, EMS, EMS Notes Reviewed, Family, RN, RN Notes Reviewed History Limitations: Reports: No Limitations - History of Present Illness INITIAL COMMENTS - FREE TEXT/NARRATIVE: Pt presents to the ER per [facility] with c/o chest pain and SOB. She states she has anxiety, and has recently been dealing with a lot of anxiety, but she states she has a family history of cardiac disease, and this scares her. She states when she lays on her side and raises her arm above her head she finds it more difficult to breathe. She states by the time she called her daughter and the ambulance, the patient was unable to speak in full sentences. Patient states she has had nausea with these episodes, and this is new. Patient denies any other recent problems. Patient states she was seen in the ER on Monday for the same problem. Onset: Today, Sudden Duration: Waxing/Waning Location: Reports: Chest Quality: Reports: Ache, Dull Severity: Mild Improves with: Reports: None Worsens with: Reports: None Associated Symptoms: Reports: No Other Symptoms - Related Data Allergies Allergy/AdvReac Type Severity Reaction Status Date / Time epinephrine Allergy Difficulty Verified 11/11/17 00:59 Breathing Iodinated Contrast- Oral and Allergy Hives Verified 11/11/17 00:59 IV Dye [Iodinated Contrast Media - Oral and] ketorolac [From Toradol] Allergy Rash Verified 11/11/17 00:59 lidocaine Allergy Difficulty Verified 11/11/17 00:59 Breathing pineapple [Pineapple] Allergy Hives Verified 11/11/17 00:59 Home Meds: Home Meds ALPRAZolam [Xanax] 1 tab PO TID PRN 12/26/15 [History] Omeprazole 20 mg PO DAILY PRN 04/16/17 [History] metFORMIN [Glucophage XR] 500 mg PO BIDMEALS 04/16/17 [History] oxyCODONE 5 mg PO TID 11/07/17 [History] Past Medical History - Past Health History Medical/Surgical History: Denies Medical/Surgical History HEENT History: Reports: None, Impaired Vision Cardiovascular History: Reports: None Respiratory History: Reports: None Gastrointestinal History: Reports: GERD 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 History: Reports: 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: Musculoskeletal History: Reports: Arthritis, Osteoarthritis Other Musculoskeletal History: CHRONIC L)KNEE PAIN Neurological History: Reports: None Psychiatric History: Reports: Anxiety, Depression, Panic Attack Endocrine/Metabolic History: Reports: Diabetes, Type II, Obesity/BMI 30+ Hematologic History: Reports: None Immunologic History: Reports: None Oncologic (Cancer) History: Reports: None Dermatologic History: Reports: Other (See Below) Other Dermatologic History: skin graft to right lower leg - Infectious Disease History Infectious Disease History: Reports: Chicken Pox - Past Surgical History HEENT Surgical History: Reports: Tonsillectomy, Other (See Below) Social & Family History - Family History Family Medical History: Noncontributory Cardiac: Reports: CAD, High Cholesterol, Heart Failure, Hypertension Other Cardiac Family History: Mother Respiratory: Reports: Asthma, COPD : Reports: Renal Disease/Insufficiency Other Family History: Sister. Musculoskeletal: Reports: Back pain, Chronic Neurological: Reports: CVA Psychiatric: Reports: Anxiety, Depression Endocrine/Metabolic: Reports: Diabetes, type II, Obesity/MBI 30+ - Tobacco Use Smoking Status *Q: Unknown Ever Smoked Second Hand Smoke Exposure: Yes - Caffeine Use Caffeine Use: Reports: Coffee, Tea - Alcohol Use Days Per Week of Alcohol Use: 0 - Recreational Drug Use Recreational Drug Use: No Drug Use in Last 12 Months: No Recreational Drug Type: Reports: Marijuana/Hashish - Living Situation & Occupation Living situation: Reports: with Family Occupation: Unemployed ED ROS GENERAL - Review of Systems Review Of Systems: ROS reveals no pertinent complaints other than HPI. ED EXAM, GENERAL - Physical Exam Exam: See Below Exam Limited By: No Limitations General Appearance: Alert, WD/WN, Mild Distress Eye Exam: Bilateral Eye: EOMI, Normal Inspection Ears: Normal External Exam, Hearing Grossly Normal Nose: Normal Inspection Throat/Mouth: Normal Inspection, Normal Voice, No Airway Compromise Head: Atraumatic, Normocephalic Neck: Normal Inspection, Supple, Non-Tender, Full Range of Motion Respiratory/Chest: No Respiratory Distress, Lungs Clear, Normal Breath Sounds, No Accessory Muscle Use, Chest Non-Tender Cardiovascular: Normal Peripheral Pulses, Regular Rate, Rhythm, No Edema, No Gallop, No JVD, No Murmur, No Rub Peripheral Pulses: 2+: Radial (L), Radial (R) GI/Abdominal: Normal Bowel Sounds, Soft, Non-Tender, No Organomegaly, No Distention, No Abnormal Bruit, No Mass (Female) Exam: Deferred Rectal (Female) Exam: Deferred Back Exam: Normal Inspection, Full Range of Motion, NT Extremities: Normal Inspection, Normal Range of Motion, Non-Tender, Normal Capillary Refill, No Pedal Edema Neurological: Alert, Oriented, CN II-XII Intact, Normal Cognition, Normal Gait, Normal Reflexes, No Motor/Sensory Deficits Psychiatric: Anxious, Tearful Skin Exam: Warm, Dry, Intact, Normal Color, No Rash Lymphatic: No Adenopathy EKG INTERPRETATION EKG Date: 11/11/17 Time: 01:42 Rhythm: NSR Rate (Beats/Min): 61 [place]: Normal P-Wave: Present QRS: Normal ST-T: Normal QT: Normal Comparison: No Change Course - Vital Signs Last Recorded V/S: Last Vital Signs Temp 97.7 F 11/11/17 00:55 Pulse 67 11/11/17 00:55 Resp 20 11/11/17 00:55 BP 151/81 H 11/11/17 00:55 Pulse Ox 100 11/11/17 00:55 - Orders/Labs/Meds Orders: Active Orders 24 hr Category Date Time Status EKG Documentation Completion [RC] STAT Care 11/11/17 01:11 Active POC Glucose [Blood Glucose Check, Bedside] [RC] ONETIME Care 11/11/17 02:13 Active Peripheral IV Care [RC] . DIRECTED Care 11/11/17 01:12 Active Chest 1V Frontal [CR] Stat Exams 11/11/17 01:12 Taken Sodium Chloride 0.9% [Saline Flush] Med 11/11/17 01:11 Active 10 ml FLUSH ASDIRECTED PRN Peripheral IV Insertion Adult [OM.PC] Stat Oth 11/11/17 01:11 Ordered Medication Orders Sodium Chloride (Saline Flush) 10 ml FLUSH ASDIRECTED PRN PRN Reason: Keep Vein Open Last Admin: 11/11/17 02:43 Dose: 10 ml Admin: 11/11/17 01:31 Dose: 10 ml Labs: Laboratory Tests 11/11/17 11/11/17 11/11/17 Range/Units 01:40 01:40 02:32 WBC 15.1 H (5.0-10.0) 10^3/uL RBC 4.59 (4.2-5.4) 10^6/uL Hgb 12.1 (12.0-16.0) g/dL Hct 37.2 (37.0-47.0) % MCV 81.0 (80-100) fL MCH 26.4 L (27.0-34.0) pg MCHC 32.5 L (33.0-35.0) g/dL Plt Count 374 (150-450) 10^3/uL Neut % (Auto) 65.8 (42.2-75.2) % Lymph % (Auto) 27.0 (20.5-50.1) % Curry % (Auto) 5.1 (2-8) % Eos % (Auto) 1.8 (1.0-3.0) % Baso % (Auto) 0.3 (0.0-1.0) % Sodium 136 (135-145) mmol/L Potassium 3.5 L (3.6-5.0) mmol/L Chloride 104 (101-111) mmol/L Carbon Dioxide 23.0 (21.0-31.0) mmol/L Anion Gap 12.5 BUN 14 (7-18) mg/dL Creatinine 0.5 L (0.6-1.3) mg/dL Est Cr Clr Drug Dosing 109.78 mL/min Estimated GFR (MDRD) > 60 BUN/Creatinine Ratio 28.00 Glucose 117 H (74-105) mg/dL POC Glucose 111 H (70-105) mg/dl Calcium 9.1 (8.4-10.2) mg/dl Total Bilirubin 0.2 (0.2-1.0) mg/dL AST 25 (10-42) IU/L ALT 21 (10-60) IU/L Alkaline Phosphatase 109 (42-121) IU/L Troponin I < 0.02 (0.00-0.02) ng/ml Total Protein 7.5 (6.7-8.2) g/dl Albumin 3.8 (3.2-5.5) g/dl Globulin 3.7 Albumin/Globulin Ratio 1.03 Meds: Medications Generic Name Dose Route Start Last Admin Trade Name Freq PRN Reason Stop Dose Admin Sodium Chloride 10 ml 11/11/17 01:11 11/11/17 02:43 Saline Flush FLUSH 10 ml ASDIRECTED PRN Administration Keep Vein Open Discontinued Medications Generic Name Dose Route Start Last Admin Trade Name Freq PRN Reason Stop Dose Admin Lorazepam 1 mg 11/11/17 01:12 11/11/17 01:30 Ativan IVPUSH 11/11/17 01:13 1 mg ONETIME ONE Administration Lorazepam 1 mg 11/11/17 02:36 11/11/17 02:43 Ativan IVPUSH 11/11/17 02:37 1 mg ONETIME ONE Administration - Radiology Interpretation Free Text/Narrative:: Chest xray: No acute findings See rad report Departure - Departure Time of Disposition: 03:11 Disposition: Home, Self-Care 01 Condition: Fair Clinical Impression: Anxiety, Non-cardiac chest pain - Discharge Information Instructions: Panic Attacks, [id number], Nonspecific Chest Pain, [id number] Forms: ED Department Discharge Additional Instructions: Seek counseling Follow up with your primary care facility next week Rest Continue taking medications as previously prescribed - My Orders Last 24 Hours: My Active Orders 11/11/17 01:11 EKG Documentation Completion [RC] STAT Sodium Chloride 0.9% [Saline Flush] 10 ml FLUSH ASDIRECTED PRN Peripheral IV Insertion Adult [OM.PC] Stat 11/11/17 01:12 Peripheral IV Care [RC] . DIRECTED Chest 1V Frontal [CR] Stat 11/11/17 02:13 POC Glucose [Blood Glucose Check, Bedside] [RC] ONETIME - Assessment/Plan Last 24 Hours: My Active Orders 11/11/17 01:11 EKG Documentation Completion [RC] STAT Sodium Chloride 0.9% [Saline Flush] 10 ml FLUSH ASDIRECTED PRN Peripheral IV Insertion Adult [OM.PC] Stat 11/11/17 01:12 Peripheral IV Care [RC] . DIRECTED Chest 1V Frontal [CR] Stat 11/11/17 02:13 POC Glucose [Blood Glucose Check, Bedside] [RC] ONETIME
--- NOTE | 2017-11-14 13:21 | EKG ---
11/11/2017 - DEL MCMAHON - TIME: 1:42 a.m. After my reading, EKG shows sinus rhythm at 61. [facility] /[id number]
== END 2017-11-11 03:30 | disposition home or self-care (01) ==
LOC: DL.ED 00:40
DX: F41.9 Anxiety disorder, unspecified (principal); R07.89 Other chest pain; E11.9 Type 2 diabetes mellitus without complications; Z88.8 Allergy status to other drugs, medicaments and biological substances; Z91.041 Radiographic dye allergy status; Z88.6 Allergy status to analgesic agent; Z79.899 Other long term (current) drug therapy; Z79.84 Long term (current) use of oral hypoglycemic drugs
CPT/HCPCS: 36415; 71045; 80053; 82962; 84484; 85025; 93005; 96374; 96376; 99284; J2060; J7050

== ENCOUNTER 2018-01-18 20:47 | Emergency (ER) | payer MEDICAID ==
[2018-01-18 20:56] VITALS: BP 136/87
--- NOTE | 2018-01-18 21:26 | EDM.PDOC ---
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 been ok all day until now just returned from [place] but didn't have pain then. ate there of sandwich and soup. Lower Abdomen Pain Score (Numeric/FACES): 7 - Related Data Allergies Allergy/AdvReac Type Severity Reaction Status Date / Time epinephrine Allergy Difficulty Verified 01/18/18 20:56 Breathing Iodinated Contrast- Oral and Allergy Hives Verified 01/18/18 20:56 IV Dye [Iodinated Contrast Media - Oral and] ketorolac [From Toradol] Allergy Rash Verified 01/18/18 20:56 lidocaine Allergy Difficulty Verified 01/18/18 20:56 Breathing pineapple [Pineapple] Allergy Hives Verified 01/18/18 20:56 Home Meds: Home Meds ALPRAZolam [Xanax] 1 tab PO TID PRN 12/26/15 [History] Omeprazole 20 mg PO DAILY PRN 04/16/17 [History] metFORMIN [Glucophage XR] 500 mg PO BIDMEALS 04/16/17 [History] oxyCODONE 5 mg PO TID 11/07/17 [History] Past Medical History - Past Health History Medical/Surgical History: Denies Medical/Surgical History HEENT History: Reports: Impaired Vision Cardiovascular History: Reports: None Respiratory History: Reports: None Gastrointestinal History: Reports: GERD 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 History: Reports: None 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: Musculoskeletal History: Reports: Arthritis, Osteoarthritis Other Musculoskeletal History: CHRONIC L)KNEE PAIN Neurological History: Reports: None Psychiatric History: Reports: Anxiety, Depression, Panic Attack Endocrine/Metabolic History: Reports: Diabetes, Type II, Obesity/BMI 30+ Hematologic History: Reports: None Immunologic History: Reports: None Oncologic (Cancer) History: Reports: None Dermatologic History: Reports: Other (See Below) Other Dermatologic History: skin graft to right lower leg - Infectious Disease History Infectious Disease History: Reports: Chicken Pox - Past Surgical History HEENT Surgical History: Reports: Tonsillectomy Social & Family History - Family History Family Medical History: Noncontributory Cardiac: Reports: CAD, High Cholesterol, Heart Failure, Hypertension Other Cardiac Family History: Mother Respiratory: Reports: Asthma, COPD : Reports: Renal Disease/Insufficiency Other Family History: Sister. Musculoskeletal: Reports: Back pain, Chronic Neurological: Reports: CVA Psychiatric: Reports: Anxiety, Depression Endocrine/Metabolic: Reports: Diabetes, type II, Obesity/MBI 30+ - Tobacco Use Smoking Status *Q: Never Smoker Second Hand Smoke Exposure: No - Caffeine Use Caffeine Use: Reports: Coffee, Tea - Recreational Drug Use Recreational Drug Use: No - Living Situation & Occupation Living situation: Reports: with Family Occupation: Unemployed ED ROS GENERAL - Review of Systems Review Of Systems: ROS reveals no pertinent complaints other than HPI. ED EXAM, GI/ABD - Physical Exam Exam: See Below Exam Limited By: No Limitations General Appearance: Alert, WD/WN, Mild Distress, Other (upset) Ears: Hearing Grossly Normal Throat/Mouth: Normal Voice, No Airway Compromise Head: Atraumatic Neck: Non-Tender, Full Range of Motion Respiratory/Chest: No Respiratory Distress Cardiovascular: Regular Rate, Rhythm GI/Abdominal Exam: Tender, Other (suprapubic region with hyper BS.). No: Distended, Guarding, Rigid, Rebound Neurological: Alert, Oriented, Normal Cognition, Normal Gait, No Motor/Sensory Deficits Psychiatric: Tearful Skin Exam: Warm, Dry, Normal Color Lymphatic: No Adenopathy Course - Vital Signs Last Recorded V/S: Last Vital Signs Temp 36.8 C 01/18/18 20:52 Pulse 85 01/18/18 20:52 Resp 18 01/18/18 20:52 BP 136/87 01/18/18 20:52 Pulse Ox 98 01/18/18 20:52 - Orders/Labs/Meds Orders: Active Orders 24 hr Category Date Time Status DRUG SCREEN URINE BIORAD [URCHEM] Stat Lab 01/18/18 21:35 Ordered Butorphanol [Stadol] Med 01/18/18 22:11 Once 2 mg IM ONETIME ONE Labs: Laboratory Tests 01/18/18 01/18/18 01/18/18 Range/Units 21:30 21:30 21:35 WBC 9.4 (5.0-10.0) 10^3/uL RBC 4.49 (4.2-5.4) 10^6/uL Hgb 11.7 L (12.0-16.0) g/dL Hct 36.4 L (37.0-47.0) % MCV 81.1 (80-100) fL MCH 26.1 L (27.0-34.0) pg MCHC 32.1 L (33.0-35.0) g/dL Plt Count 322 (150-450) 10^3/uL Neut % (Auto) 52.7 (42.2-75.2) % Lymph % (Auto) 38.8 (20.5-50.1) % [place] % (Auto) 6.3 (2-8) % Eos % (Auto) 1.9 (1.0-3.0) % Baso % (Auto) 0.3 (0.0-1.0) % Sodium 137 (135-145) mmol/L Potassium 3.6 (3.6-5.0) mmol/L Chloride 103 (101-111) mmol/L Carbon Dioxide 25.0 (21.0-31.0) mmol/L Anion Gap 12.6 BUN 9 (7-18) mg/dL Creatinine 0.5 L (0.6-1.3) mg/dL Est Cr Clr Drug Dosing 109.78 mL/min Estimated GFR (MDRD) > 60 BUN/Creatinine Ratio 18.00 Glucose 96 (74-105) mg/dL Calcium 8.9 (8.4-10.2) mg/dl Total Bilirubin 0.3 (0.2-1.0) mg/dL AST 19 (10-42) IU/L ALT 19 (10-60) IU/L Alkaline Phosphatase 108 (42-121) IU/L Total Protein 7.5 (6.7-8.2) g/dl Albumin 3.7 (3.2-5.5) g/dl Globulin 3.8 Albumin/Globulin Ratio 0.97 Urine Color Yellow (YELLOW) Urine Appearance Clear (CLEAR) Urine pH 5.0 (5.0-9.0) Ur Specific [place] 1.015 (1.005-1.030) Urine Protein Negative (NEGATIVE) Urine Glucose (UA) Negative (NEGATIVE) Urine Ketones Negative (NEGATIVE) Urine Occult Blood Trace-intact H (NEGATIVE) Urine Nitrite Negative (NEGATIVE) Urine Bilirubin Negative (NEGATIVE) Urine Urobilinogen 0.2 (0.2-1.0) mg/dL Ur Leukocyte Esterase Negative (NEGATIVE) Urine RBC 0-5 /HPF Urine WBC 0-5 (0-5/HPF) /HPF Ur Epithelial Cells Occasional /HPF Urine Bacteria Few (0-FEW/HPF) /HPF Urine Opiates Screen (NEGATIVE) Ur Oxycodone Screen (NEGATIVE) Urine Methadone Screen (NEGATIVE) Ur Barbiturates Screen (NEGATIVE) U Tricyclic Antidepress (NEGATIVE) Ur Phencyclidine Scrn (NEGATIVE) Ur Amphetamine Screen (NEGATIVE) U Methamphetamines Scrn (NEGATIVE) Urine MDMA Screen (NEGATIVE) U Benzodiazepines Scrn (NEGATIVE) Urine Cocaine Screen (NEGATIVE) U Marijuana (THC) Screen (NEGATIVE) 01/18/18 Range/Units 21:35 WBC (5.0-10.0) 10^3/uL RBC (4.2-5.4) 10^6/uL Hgb (12.0-16.0) g/dL Hct (37.0-47.0) % MCV (80-100) fL MCH (27.0-34.0) pg MCHC (33.0-35.0) g/dL Plt Count (150-450) 10^3/uL Neut % (Auto) (42.2-75.2) % Lymph % (Auto) (20.5-50.1) % [place] % (Auto) (2-8) % Eos % (Auto) (1.0-3.0) % Baso % (Auto) (0.0-1.0) % Sodium (135-145) mmol/L Potassium (3.6-5.0) mmol/L Chloride (101-111) mmol/L Carbon Dioxide (21.0-31.0) mmol/L Anion Gap BUN (7-18) mg/dL Creatinine (0.6-1.3) mg/dL Est Cr Clr Drug Dosing mL/min Estimated GFR (MDRD) BUN/Creatinine Ratio Glucose (74-105) mg/dL Calcium (8.4-10.2) mg/dl Total Bilirubin (0.2-1.0) mg/dL AST (10-42) IU/L ALT (10-60) IU/L Alkaline Phosphatase (42-121) IU/L Total Protein (6.7-8.2) g/dl Albumin (3.2-5.5) g/dl Globulin Albumin/Globulin Ratio Urine Color (YELLOW) Urine Appearance (CLEAR) Urine pH (5.0-9.0) Ur Specific [place] (1.005-1.030) Urine Protein (NEGATIVE) Urine Glucose (UA) (NEGATIVE) Urine Ketones (NEGATIVE) Urine Occult Blood (NEGATIVE) Urine Nitrite (NEGATIVE) Urine Bilirubin (NEGATIVE) Urine Urobilinogen (0.2-1.0) mg/dL Ur Leukocyte Esterase (NEGATIVE) Urine RBC /HPF Urine WBC (0-5/HPF) /HPF Ur Epithelial Cells /HPF Urine Bacteria (0-FEW/HPF) /HPF Urine Opiates Screen Positive H (NEGATIVE) Ur Oxycodone Screen Positive H (NEGATIVE) Urine Methadone Screen Negative (NEGATIVE) Ur Barbiturates Screen Negative (NEGATIVE) U Tricyclic Antidepress Negative (NEGATIVE) Ur Phencyclidine Scrn Negative (NEGATIVE) Ur Amphetamine Screen Negative (NEGATIVE) U Methamphetamines Scrn Negative (NEGATIVE) Urine MDMA Screen Negative (NEGATIVE) U Benzodiazepines Scrn Positive H (NEGATIVE) Urine Cocaine Screen Negative (NEGATIVE) U Marijuana (THC) Screen Negative (NEGATIVE) - Re-Assessments/Exams Free Text/Narrative Re-Assessment/Exam: 01/18/18 22:11 results discussed with pt. Departure - Departure Time of Disposition: 22:12 Disposition: Home, Self-Care 01 Condition: Fair Clinical Impression: Abdominal pain Qualifiers: Abdominal location: lower abdomen, unspecified Qualified Code(s): R10.30 - Lower abdominal pain, unspecified - Discharge Information Instructions: Abdominal Pain, Adult, [id number] Referrals: Marcus Keller MD [Primary Care Provider] - Forms: ED Department Discharge Additional Instructions: 1) see family doctor tomorrow for PELVIC ULTRASOUND and INSTRUMENT PANEL ASSEMBLER REFERRAL - My Orders Last 24 Hours: My Active Orders 01/18/18 21:35 DRUG SCREEN URINE BIORAD [URCHEM] Stat 01/18/18 22:11 Butorphanol [Stadol] 2 mg IM ONETIME ONE - Assessment/Plan Last 24 Hours: My Active Orders 01/18/18 21:35 DRUG SCREEN URINE BIORAD [URCHEM] Stat 01/18/18 22:11 Butorphanol [Stadol] 2 mg IM ONETIME ONE
[2018-01-18 21:56] LABS: CHLORIDE,CL 103 mmol/L (101-111); SODIUM,NA 137 mmol/L (135-145)
[2018-01-18] MEDS ORDERED: Butorphanol 2 MG/ML SDV IM ONE (22:11)
== END 2018-01-18 22:26 | disposition home or self-care (01) ==
LOC: DL.ED 20:47
DX: R10.30 Lower abdominal pain, unspecified (principal); E11.9 Type 2 diabetes mellitus without complications; Z88.8 Allergy status to other drugs, medicaments and biological substances; Z91.041 Radiographic dye allergy status; Z88.6 Allergy status to analgesic agent; Z91.018 Allergy to other foods; Z79.899 Other long term (current) drug therapy; Z79.84 Long term (current) use of oral hypoglycemic drugs
CPT/HCPCS: 36415; 80053; 80305; 81001; 85025; 96372; 99284; J0595

== ENCOUNTER 2018-04-07 18:20 | Emergency (ER) | payer MEDICAID ==
--- NOTE | 2018-04-07 19:17 | EDM.PDOC ---
ED HPI GENERAL MEDICAL PROBLEM - General Chief Complaint: Chest Pain Stated Complaint: CHEST PAIN [id number] Time Seen by Provider: 04/07/18 19:00 Source of Information: Reports: Patient History Limitations: Reports: No Limitations - History of Present Illness INITIAL COMMENTS - FREE TEXT/NARRATIVE: This 57 yo female patient reports to the ED due to chest pressure and tightness. The patient reports her symptoms started yesterday when she was in the [facility] with her . The patient reports she started to feel very anxious yesterday while her was in surgery after an [facility] employee took her to cardiology just after her was taken into surgery. As it turned out, the patient's was not taken to cardiology, but she has been feeling anxious with difficulties breathing since that time. The patient reports that her was transferred to [place] today to be in swingbed. The patient reports she had been on Alprazolam up to about 1 month ago for panic attacks, but was taken off the medications. Onset Date: 04/06/18 Duration: Constant Location: Reports: Chest Quality: Reports: Dull, Pressure Severity: Moderate Improves with: Reports: None Worsens with: Reports: None Associated Symptoms: Reports: Chest Pain Left Chest Pain Score (Numeric/FACES): 6 - Related Data Allergies Allergy/AdvReac Type Severity Reaction Status Date / Time epinephrine Allergy Difficulty Verified 04/07/18 18:29 Breathing Iodinated Contrast- Oral and Allergy Hives Verified 04/07/18 18:29 IV Dye [Iodinated Contrast Media - Oral and] ketorolac [From Toradol] Allergy Rash Verified 04/07/18 18:29 lidocaine Allergy Difficulty Verified 04/07/18 18:29 Breathing pineapple [Pineapple] Allergy Hives Verified 04/07/18 18:29 Home Meds: Home Meds Omeprazole 20 mg PO DAILY PRN 04/16/17 [History] oxyCODONE 5 mg PO TID 11/07/17 [History] Past Medical History - Past Health History Medical/Surgical History: Denies Medical/Surgical History HEENT History: Reports: Impaired Vision Cardiovascular History: Reports: None Respiratory History: Reports: None Gastrointestinal History: Reports: GERD 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 History: Reports: 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: Musculoskeletal History: Reports: Arthritis, Osteoarthritis Other Musculoskeletal History: CHRONIC L)KNEE PAIN Neurological History: Reports: None Psychiatric History: Reports: Anxiety, Depression, Panic Attack Endocrine/Metabolic History: Reports: Diabetes, Type II, Obesity/BMI 30+ Hematologic History: Reports: None Immunologic History: Reports: None Oncologic (Cancer) History: Reports: None Dermatologic History: Reports: Other (See Below) Other Dermatologic History: skin graft to right lower leg - Infectious Disease History Infectious Disease History: Reports: Chicken Pox - Past Surgical History HEENT Surgical History: Reports: Tonsillectomy Social & Family History - Family History Family Medical History: Noncontributory Cardiac: Reports: CAD, High Cholesterol, Heart Failure, Hypertension Other Cardiac Family History: Mother Respiratory: Reports: Asthma, COPD : Reports: Renal Disease/Insufficiency Other Family History: Sister. Musculoskeletal: Reports: Back pain, Chronic Neurological: Reports: CVA Psychiatric: Reports: Anxiety, Depression Endocrine/Metabolic: Reports: Diabetes, type II, Obesity/MBI 30+ - Tobacco Use Smoking Status *Q: Never Smoker Second Hand Smoke Exposure: No - Caffeine Use Caffeine Use: Reports: Coffee, Tea - Recreational Drug Use Recreational Drug Use: No - Living Situation & Occupation Living situation: Reports: with Family Occupation: Unemployed ED ROS GENERAL - Review of Systems Review Of Systems: ROS reveals no pertinent complaints other than HPI. ED EXAM, GENERAL - Physical Exam Exam: See Below Exam Limited By: No Limitations General Appearance: Alert, WD/WN, Moderate Distress, Obese Eye Exam: Bilateral Eye: EOMI, Normal Inspection, PERRL Ears: Normal External Exam, Normal Canal, Hearing Grossly Normal, Normal TMs Nose: Normal Inspection, Normal Mucosa, No Blood Throat/Mouth: Normal Inspection, Normal Lips, Normal Teeth, Normal Gums, Normal Oropharynx, Normal Voice, No Airway Compromise Head: Atraumatic, Normocephalic Neck: Normal Inspection, Supple, Non-Tender, Full Range of Motion Respiratory/Chest: No Respiratory Distress, Lungs Clear, Normal Breath Sounds, No Accessory Muscle Use, Chest Non-Tender Cardiovascular: Normal Peripheral Pulses, Regular Rate, Rhythm, No Edema, No Gallop, No JVD, No Murmur, No Rub GI/Abdominal: Normal Bowel Sounds, Soft, Non-Tender, No Organomegaly, No Distention, No Abnormal Bruit, No Mass, Other (morbid obesity) (Female) Exam: Deferred Rectal (Female) Exam: Deferred Back Exam: Normal Inspection, Full Range of Motion, NT Extremities: Normal Inspection, Normal Range of Motion, Non-Tender, Normal Capillary Refill, No Pedal Edema Neurological: Alert, Oriented, CN II-XII Intact, Normal Cognition, Normal Gait, Normal Reflexes, No Motor/Sensory Deficits Psychiatric: Normal Affect, Normal Mood Skin Exam: Warm, Dry, Intact, Normal Color, No Rash Lymphatic: No Adenopathy Course - Vital Signs Last Recorded V/S: Last Vital Signs Temp 36.6 C 04/07/18 19:31 Pulse 66 04/07/18 19:31 Resp 20 04/07/18 19:31 BP 96/54 L 04/07/18 19:31 Pulse Ox 99 04/07/18 19:31 - Orders/Labs/Meds Orders: Active Orders 24 hr Category Date Time Status EKG Documentation Completion [RC] URGENT Care 04/07/18 19:05 Active Labs: Laboratory Tests 04/07/18 04/07/18 Range/Units 18:35 18:35 WBC 10.1 H (5.0-10.0) 10^3/uL RBC 4.62 (4.2-5.4) 10^6/uL Hgb 11.8 L (12.0-16.0) g/dL Hct 37.3 (37.0-47.0) % MCV 80.7 (80-100) fL MCH 25.5 L (27.0-34.0) pg MCHC 31.6 L (33.0-35.0) g/dL Plt Count 340 (150-450) 10^3/uL Neut % (Auto) 43.4 (42.2-75.2) % Lymph % (Auto) 47.2 (20.5-50.1) % [place] % (Auto) 5.3 (2-8) % Eos % (Auto) 3.9 H (1.0-3.0) % Baso % (Auto) 0.2 (0.0-1.0) % Sodium 140 (135-145) mmol/L Potassium 3.8 (3.6-5.0) mmol/L Chloride 104 (101-111) mmol/L Carbon Dioxide 30.0 (21.0-31.0) mmol/L Anion Gap 9.8 BUN 14 (7-18) mg/dL Creatinine 0.6 (0.6-1.3) mg/dL Est Cr Clr Drug Dosing 91.48 mL/min Estimated GFR (MDRD) > 60 BUN/Creatinine Ratio 23.33 Glucose 103 (74-105) mg/dL Calcium 8.9 (8.4-10.2) mg/dl Total Bilirubin 0.3 (0.2-1.0) mg/dL AST 17 (10-42) IU/L ALT 16 (10-60) IU/L Alkaline Phosphatase 106 (42-121) IU/L Troponin I < 0.02 (0.00-0.02) ng/ml Total Protein 7.5 (6.7-8.2) g/dl Albumin 3.8 (3.2-5.5) g/dl Globulin 3.7 Albumin/Globulin Ratio 1.03 Meds: Medications Discontinued Medications Generic Name Dose Route Start Last Admin Trade Name Freq PRN Reason Stop Dose Admin Lorazepam 0.5 mg 04/07/18 19:37 04/07/18 19:45 Ativan PO 04/07/18 19:38 0.5 mg ONETIME ONE Administration Departure - Departure Time of Disposition: 20:06 Disposition: Home, Self-Care 01 Condition: Fair Clinical Impression: Nonspecific chest pain, Panic attack as reaction to stress Instructions: Nonspecific Chest Pain, [id number], Panic Attack, [id number] Forms: ED Department Discharge Care Plan Goals: The patient was advised of the examination, lab and EKG results during the visit. The patient was given an oral dose of Ativan while in the ED. The patient was discharged with Ativan (0.5 mg) #6 to take 1 by mouth every 6 hours as needed and a script for Ativan (0.5 mg) #8 to take 1 by mouth every 6 hours as needed for anxiety. The patient should follow-up with her primary care facility next week. If the patient has any additional symptoms or concerns, the patient should visit her primary care facility or return to the emergency department. - My Orders Last 24 Hours: My Active Orders 04/07/18 19:05 EKG Documentation Completion [RC] URGENT - Assessment/Plan Last 24 Hours: My Active Orders 04/07/18 19:05 EKG Documentation Completion [RC] URGENT
[2018-04-07 19:19] LABS: ANION GAP 9.8; CHLORIDE,CL 104 mmol/L (101-111); SODIUM,NA 140 mmol/L (135-145)
[2018-04-07 19:32] VITALS: BP 96/54
[2018-04-07] MEDS ORDERED: LORazepam 0.5 MG Tab PO ONE (19:37)
[2018-04-07] MEDS ORDERED: LORazepam 0.5 MG Tab ONE (20:16)
== END 2018-04-07 20:20 | disposition home or self-care (01) ==
LOC: DL.ED 18:20
DX: R07.9 Chest pain, unspecified (principal); F41.0 Panic disorder [episodic paroxysmal anxiety]; F43.9 Reaction to severe stress, unspecified; K21.9 Gastro-esophageal reflux disease without esophagitis; F32.9 Major depressive disorder, single episode, unspecified; E11.9 Type 2 diabetes mellitus without complications; Z88.8 Allergy status to other drugs, medicaments and biological substances; Z79.899 Other long term (current) drug therapy
CPT/HCPCS: 36415; 80053; 84484; 85025; 93005; 99285; A9270

== ENCOUNTER 2018-04-28 10:19 | Emergency (ER) | payer MEDICAID ==
[2018-04-28] MEDS ORDERED: Sodium Chloride 0.9% 10 ML Syringe FLUSH PRN (10:27)
[2018-04-28] MEDS ORDERED: LORazepam 2 MG/ML Syringe IVPUSH ONE ×2 (10:49→11:53)
[2018-04-28 11:08] LABS: ANION GAP 14.7; CHLORIDE,CL 101 mmol/L (101-111); SODIUM,NA 133 mmol/L (135-145)
--- NOTE | 2018-04-28 11:25 | CR ---
History: 57-year-old female chest pain. Interpretation: No acute new cardiopulmonary abnormality identified in the interval since November exam. Hypertrophic spondylosis but thorax otherwise unremarkable. Normal cardiac silhouette. Left-sided aor tic arch. No cephalization of vascular flow, signs of alveolar edema or dependent effusion. No lung mass, hilar lymphadenopathy, focal lobar pneumonia, atelectasis or collapse. No pneumothorax. No free subdiaphragmatic air.
[2018-04-28 12:06] VITALS: BP 134/84
--- NOTE | 2018-04-28 12:22 | EDM.PDOC ---
Scribed by Natalya Oneill 04/28/18 1201 for Mally Carbajal NP ED HPI GENERAL MEDICAL PROBLEM - General Chief Complaint: Behavioral/Psych Stated Complaint: AMBULANCE Time Seen by Provider: 04/28/18 10:24 Source of Information: Reports: Patient, EMS, EMS Notes Reviewed, RN, RN Notes Reviewed History Limitations: Reports: No Limitations - History of Present Illness INITIAL COMMENTS - FREE TEXT/NARRATIVE: Patient presented to ER per [facility] with nausea, lightheadedness, shaking and chest pain. States she has had several episodes of feeling as though she will pass out and gets anxious. She has shortness of breath, lightheadedness, recent cold/illness in the home with nausea and vomiting. No fever or chills. Onset: Gradual Duration: Constant Location: Reports: Generalized Quality: Reports: Ache Severity: Moderate Improves with: Reports: None Worsens with: Reports: None Associated Symptoms: Reports: No Other Symptoms - Related Data Allergies Allergy/AdvReac Type Severity Reaction Status Date / Time epinephrine Allergy Difficulty Verified 04/07/18 18:29 Breathing Iodinated Contrast- Oral and Allergy Hives Verified 04/07/18 18:29 IV Dye [Iodinated Contrast Media - Oral and] ketorolac [From Toradol] Allergy Rash Verified 04/07/18 18:29 lidocaine Allergy Difficulty Verified 04/07/18 18:29 Breathing pineapple [Pineapple] Allergy Hives Verified 04/07/18 18:29 Home Meds: Home Meds Omeprazole 20 mg PO DAILY PRN 04/16/17 [History] oxyCODONE 5 mg PO TID 11/07/17 [History] Past Medical History - Past Health History Medical/Surgical History: Denies Medical/Surgical History HEENT History: Reports: Impaired Vision Cardiovascular History: Reports: None Respiratory History: Reports: None Gastrointestinal History: Reports: GERD 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 History: Reports: None 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: Musculoskeletal History: Reports: Arthritis, Osteoarthritis Other Musculoskeletal History: CHRONIC L)KNEE PAIN Neurological History: Reports: None Psychiatric History: Reports: Anxiety, Depression, Panic Attack Endocrine/Metabolic History: Reports: Diabetes, Type II, Obesity/BMI 30+ Hematologic History: Reports: None Immunologic History: Reports: None Oncologic (Cancer) History: Reports: None Dermatologic History: Reports: Other (See Below) Other Dermatologic History: skin graft to right lower leg - Infectious Disease History Infectious Disease History: Reports: Chicken Pox - Past Surgical History HEENT Surgical History: Reports: Tonsillectomy Social & Family History - Family History Family Medical History: Noncontributory Cardiac: Reports: CAD, High Cholesterol, Heart Failure, Hypertension Other Cardiac Family History: Mother Respiratory: Reports: Asthma, COPD : Reports: Renal Disease/Insufficiency Other Family History: Sister. Musculoskeletal: Reports: Back pain, Chronic Neurological: Reports: CVA Psychiatric: Reports: Anxiety, Depression Endocrine/Metabolic: Reports: Diabetes, type II, Obesity/MBI 30+ - Tobacco Use Smoking Status *Q: Never Smoker Second Hand Smoke Exposure: No - Caffeine Use Caffeine Use: Reports: Coffee, Tea - Recreational Drug Use Recreational Drug Use: No - Living Situation & Occupation Living situation: Reports: with Family Occupation: Unemployed ED ROS GENERAL - Review of Systems Review Of Systems: ROS reveals no pertinent complaints other than HPI. ED EXAM, GENERAL - Physical Exam Exam: See Below Exam Limited By: No Limitations General Appearance: Anxious, Other (tearfull) Eye Exam: Bilateral Eye: Other (cataracts) Ears: Normal External Exam, Normal Canal, Hearing Grossly Normal, Normal TMs Nose: Normal Inspection, Normal Mucosa, No Blood Throat/Mouth: Normal Inspection, Normal Lips, Normal Teeth, Normal Gums, Normal Oropharynx, Normal Voice, No Airway Compromise Head: Atraumatic, Normocephalic Neck: Normal Inspection, Supple, Non-Tender, Full Range of Motion Respiratory/Chest: No Respiratory Distress, Lungs Clear, Normal Breath Sounds, No Accessory Muscle Use, Chest Non-Tender Cardiovascular: Normal Peripheral Pulses, Regular Rate, Rhythm, No Edema, No Gallop, No JVD, No Murmur, No Rub GI/Abdominal: Normal Bowel Sounds, Soft, Non-Tender, No Organomegaly, No Distention, No Abnormal Bruit, No Mass (Female) Exam: Deferred Rectal (Female) Exam: Deferred Back Exam: Normal Inspection, Full Range of Motion, NT Extremities: Normal Inspection, Normal Range of Motion, Non-Tender, Normal Capillary Refill, No Pedal Edema Neurological: Alert, Oriented, CN II-XII Intact, Normal Cognition, Normal Gait, Normal Reflexes, No Motor/Sensory Deficits Psychiatric: Anxious, Tearful Skin Exam: Warm, Dry, Intact, Normal Color, No Rash Lymphatic: No Adenopathy EKG INTERPRETATION EKG Date: 04/28/18 Time: 10:39 Rhythm: NSR Rate (Beats/Min): 68 [place]: Normal P-Wave: Present QRS: Normal ST-T: Normal QT: Normal Comparison: No Change Course - Vital Signs Last Recorded V/S: Last Vital Signs Temp 97.2 F 04/28/18 12:02 Pulse 68 04/28/18 12:02 Resp 18 04/28/18 12:02 BP 134/84 04/28/18 12:02 Pulse Ox 96 04/28/18 12:02 - Orders/Labs/Meds Orders: Active Orders 24 hr Category Date Time Status EKG Documentation Completion [RC] STAT Care 04/28/18 10:27 Active Peripheral IV Care [RC] . DIRECTED Care 04/28/18 10:34 Active Sodium Chloride 0.9% [Saline Flush] Med 04/28/18 10:27 Active 10 ml FLUSH ASDIRECTED PRN Peripheral IV Insertion Adult [OM.PC] Stat Oth 04/28/18 10:27 Ordered Medication Orders Sodium Chloride (Saline Flush) 10 ml FLUSH ASDIRECTED PRN PRN Reason: Keep Vein Open Last Admin: 04/28/18 10:38 Dose: 10 ml Labs: Laboratory Tests 04/28/18 04/28/18 04/28/18 Range/Units 10:34 10:34 10:34 WBC 12.4 H (5.0-10.0) 10^3/uL RBC 4.76 (4.2-5.4) 10^6/uL Hgb 11.9 L (12.0-16.0) g/dL Hct 37.2 (37.0-47.0) % MCV 78.2 L (80-100) fL MCH 25.0 L (27.0-34.0) pg MCHC 32.0 L (33.0-35.0) g/dL Plt Count 347 (150-450) 10^3/uL Neut % (Auto) 60.4 (42.2-75.2) % Lymph % (Auto) 32.4 (20.5-50.1) % [place] % (Auto) 4.3 (2-8) % Eos % (Auto) 2.7 (1.0-3.0) % Baso % (Auto) 0.2 (0.0-1.0) % PT 9.0 (9.0-12.0) SEC INR 0.9 (0.9-1.2) Sodium 133 L (135-145) mmol/L Potassium 3.7 (3.6-5.0) mmol/L Chloride 101 (101-111) mmol/L Carbon Dioxide 21.0 (21.0-31.0) mmol/L Anion Gap 14.7 BUN 11 (7-18) mg/dL Creatinine 0.6 (0.6-1.3) mg/dL Est Cr Clr Drug Dosing 91.48 mL/min Estimated GFR (MDRD) > 60 BUN/Creatinine Ratio 18.33 Glucose 152 H (74-105) mg/dL Calcium 8.8 (8.4-10.2) mg/dl Total Bilirubin 0.8 (0.2-1.0) mg/dL AST 27 (10-42) IU/L ALT 20 (10-60) IU/L Alkaline Phosphatase 131 H (42-121) IU/L Troponin I < 0.02 (0.00-0.02) ng/ml Total Protein 7.6 (6.7-8.2) g/dl Albumin 3.9 (3.2-5.5) g/dl Globulin 3.7 Albumin/Globulin Ratio 1.05 Urine Color (YELLOW) Urine Appearance (CLEAR) Urine pH (5.0-9.0) Ur Specific [place] (1.005-1.030) Urine Protein (NEGATIVE) Urine Glucose (UA) (NEGATIVE) Urine Ketones (NEGATIVE) Urine Occult Blood (NEGATIVE) Urine Nitrite (NEGATIVE) Urine Bilirubin (NEGATIVE) Urine Urobilinogen (0.2-1.0) mg/dL Ur Leukocyte Esterase (NEGATIVE) Urine RBC /HPF Urine WBC (0-5/HPF) /HPF Ur Epithelial Cells /HPF Urine Bacteria (0-FEW/HPF) /HPF Urinalysis Comment Urine Opiates Screen (NEGATIVE) Ur Oxycodone Screen (NEGATIVE) Urine Methadone Screen (NEGATIVE) Ur Barbiturates Screen (NEGATIVE) U Tricyclic Antidepress (NEGATIVE) Ur Phencyclidine Scrn (NEGATIVE) Ur Amphetamine Screen (NEGATIVE) U Methamphetamines Scrn (NEGATIVE) Urine MDMA Screen (NEGATIVE) U Benzodiazepines Scrn (NEGATIVE) Urine Cocaine Screen (NEGATIVE) U Marijuana (THC) Screen (NEGATIVE) Ethyl Alcohol < 5 mg/dL 04/28/18 04/28/18 Range/Units 10:55 10:55 WBC (5.0-10.0) 10^3/uL RBC (4.2-5.4) 10^6/uL Hgb (12.0-16.0) g/dL Hct (37.0-47.0) % MCV (80-100) fL MCH (27.0-34.0) pg MCHC (33.0-35.0) g/dL Plt Count (150-450) 10^3/uL Neut % (Auto) (42.2-75.2) % Lymph % (Auto) (20.5-50.1) % [place] % (Auto) (2-8) % Eos % (Auto) (1.0-3.0) % Baso % (Auto) (0.0-1.0) % PT (9.0-12.0) SEC INR (0.9-1.2) Sodium (135-145) mmol/L Potassium (3.6-5.0) mmol/L Chloride (101-111) mmol/L Carbon Dioxide (21.0-31.0) mmol/L Anion Gap BUN (7-18) mg/dL Creatinine (0.6-1.3) mg/dL Est Cr Clr Drug Dosing mL/min Estimated GFR (MDRD) BUN/Creatinine Ratio Glucose (74-105) mg/dL Calcium (8.4-10.2) mg/dl Total Bilirubin (0.2-1.0) mg/dL AST (10-42) IU/L ALT (10-60) IU/L Alkaline Phosphatase (42-121) IU/L Troponin I (0.00-0.02) ng/ml Total Protein (6.7-8.2) g/dl Albumin (3.2-5.5) g/dl Globulin Albumin/Globulin Ratio Urine Color Yellow (YELLOW) Urine Appearance Clear (CLEAR) Urine pH 6.0 (5.0-9.0) Ur Specific [place] 1.020 (1.005-1.030) Urine Protein 100 H (NEGATIVE) Urine Glucose (UA) Negative (NEGATIVE) Urine Ketones Negative (NEGATIVE) Urine Occult Blood Trace-lysed H (NEGATIVE) Urine Nitrite Negative (NEGATIVE) Urine Bilirubin Negative (NEGATIVE) Urine Urobilinogen 0.2 (0.2-1.0) mg/dL Ur Leukocyte Esterase Small H (NEGATIVE) Urine RBC 0-5 /HPF Urine WBC 5-10 H (0-5/HPF) /HPF Ur Epithelial Cells Few /HPF Urine Bacteria Moderate H (0-FEW/HPF) /HPF Urinalysis Comment Urine Opiates Screen Positive H (NEGATIVE) Ur Oxycodone Screen Positive H (NEGATIVE) Urine Methadone Screen Negative (NEGATIVE) Ur Barbiturates Screen Negative (NEGATIVE) U Tricyclic Antidepress Negative (NEGATIVE) Ur Phencyclidine Scrn Negative (NEGATIVE) Ur Amphetamine Screen Negative (NEGATIVE) U Methamphetamines Scrn Negative (NEGATIVE) Urine MDMA Screen Negative (NEGATIVE) U Benzodiazepines Scrn Positive H (NEGATIVE) Urine Cocaine Screen Negative (NEGATIVE) U Marijuana (THC) Screen Negative (NEGATIVE) Ethyl Alcohol mg/dL Meds: Medications Generic Name Dose Route Start Last Admin Trade Name Freq PRN Reason Stop Dose Admin Sodium Chloride 10 ml 04/28/18 10:27 04/28/18 10:38 Saline Flush FLUSH 10 ml ASDIRECTED PRN Administration Keep Vein Open Discontinued Medications Generic Name Dose Route Start Last Admin Trade Name Freq PRN Reason Stop Dose Admin Lorazepam 1 mg 04/28/18 10:49 04/28/18 10:55 Ativan IVPUSH 04/28/18 10:50 1 mg ONETIME ONE Administration Lorazepam 1 mg 04/28/18 11:53 04/28/18 11:57 Ativan IVPUSH 04/28/18 11:54 1 mg ONETIME ONE Administration - Radiology Interpretation Free Text/Narrative:: Chest xray: No acute findings See rad reports Departure - Departure Time of Disposition: 12:10 Disposition: Home, Self-Care 01 Condition: Fair Clinical Impression: Panic disorder, Panic attack as reaction to stress Depression Qualifiers: Depression Type: unspecified Qualified Code(s): F32.9 - Major depressive disorder, single episode, unspecified - Discharge Information *PRESCRIPTION DRUG MONITORING PROGRAM REVIEWED*: No *COPY OF PRESCRIPTION DRUG MONITORING REPORT IN PATIENT KENY: No Instructions: Panic Attack, [id number], Living With Anxiety, Living With Depression Forms: ED Department Discharge Additional Instructions: Cut Sertraline to 50mg until seen by Dr. Keller Follow up with your primary care facility Consider [facility] at [facility] or with [facility] - My Orders Last 24 Hours: My Active Orders 04/28/18 10:27 EKG Documentation Completion [RC] STAT Sodium Chloride 0.9% [Saline Flush] 10 ml FLUSH ASDIRECTED PRN Peripheral IV Insertion Adult [OM.PC] Stat 04/28/18 10:34 Peripheral IV Care [RC] . DIRECTED - Assessment/Plan Last 24 Hours: My Active Orders 04/28/18 10:27 EKG Documentation Completion [RC] STAT Sodium Chloride 0.9% [Saline Flush] 10 ml FLUSH ASDIRECTED PRN Peripheral IV Insertion Adult [OM.PC] Stat 04/28/18 10:34 Peripheral IV Care [RC] . DIRECTED I have read and agree with the documentation that has been completed regarding this visit. By signing this record, I attest that the documentation was completed in my physical presence and is an accurate record of the encounter.
== END 2018-04-28 12:28 | disposition home or self-care (01) ==
LOC: DL.ED 10:19
DX: F41.0 Panic disorder [episodic paroxysmal anxiety] (principal); K21.9 Gastro-esophageal reflux disease without esophagitis; F32.9 Major depressive disorder, single episode, unspecified; E11.9 Type 2 diabetes mellitus without complications; Z88.8 Allergy status to other drugs, medicaments and biological substances; Z79.899 Other long term (current) drug therapy
CPT/HCPCS: 36415; 71045; 80053; 80305; 81001; 84484; 85025; 85610; 93005; 96374; 96376; 99285; G0480; J2060; J7050

== ENCOUNTER 2019-08-24 14:01 | Emergency (ER) | payer MEDICAID ==
[2019-08-24] MEDS ORDERED: Acetaminophen/oxyCODONE 325-5 MG Tab PO ONE ×2 (14:02→14:54)
[2019-08-24] MEDS ORDERED: Amoxicillin 500 MG Cap PO ONE ×2 (14:02→14:53)
[2019-08-24 14:33] VITALS: BP 139/86; PULSE 99
--- NOTE | 2019-08-24 15:02 | EDM.PDOC ---
Scribed by Natalya Oneill 08/24/19 1318 for Mally Carbajal NP ED HPI GENERAL MEDICAL PROBLEM - General Chief Complaint: ENT Problem Stated Complaint: TOOTHACHE/PAIN IN MOUTH AND FACE Time Seen by Provider: 08/24/19 14:37 Source of Information: Reports: Patient, RN, RN Notes Reviewed History Limitations: Reports: No Limitations - History of Present Illness INITIAL COMMENTS - FREE TEXT/NARRATIVE: Patient presents to ER with complaint of dental pain. She states she has seen the dentist in 2018--broken pieces of teeth on the right lower. States 4 weeks ago a piece of tooth fell out again. The right lower is erythematous, swollen and pain is 6-8/10. She has had fever and chills. No decrease in appetite due to pain. Onset: Gradual Duration: Getting Worse Severity: Moderate Improves with: Reports: None Worsens with: Reports: None Associated Symptoms: Reports: No Other Symptoms Right Tooth/Teeth Pain Score (Numeric/FACES): 6 - Related Data Allergies Allergy/AdvReac Type Severity Reaction Status Date / Time epinephrine Allergy Difficulty Verified 08/24/19 14:24 Breathing ibuprofen Allergy Difficulty Verified 08/24/19 14:24 Breathing Iodinated Contrast Media Allergy Hives Verified 08/24/19 14:24 [Iodinated Contrast Media - Oral and] ketorolac [From Toradol] Allergy Rash Verified 08/24/19 14:24 lidocaine Allergy Difficulty Verified 08/24/19 14:24 Breathing pineapple [Pineapple] Allergy Hives Verified 08/24/19 14:24 Home Meds: Home Meds Omeprazole 20 mg PO DAILY PRN 04/16/17 [History] Multivitamin [Multi-Day Vitamins] 1 tab PO DAILY 08/07/18 [History] Sertraline [Zoloft] 50 mg PO BID 08/07/18 [History] Past Medical History - Past Health History Medical/Surgical History: Denies Medical/Surgical History HEENT History: Reports: Impaired Vision Cardiovascular History: Reports: None Respiratory History: Reports: None Gastrointestinal History: Reports: GERD 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 History: Reports: None 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: Musculoskeletal History: Reports: Arthritis, Osteoarthritis Other Musculoskeletal History: CHRONIC L)KNEE PAIN Neurological History: Reports: None Psychiatric History: Reports: Anxiety, Depression, Panic Attack Endocrine/Metabolic History: Reports: Diabetes, Type II, Obesity/BMI 30+ Hematologic History: Reports: None Immunologic History: Reports: None Oncologic (Cancer) History: Reports: None Dermatologic History: Reports: Other (See Below) Other Dermatologic History: skin graft to right lower leg - Infectious Disease History Infectious Disease History: Reports: Chicken Pox - Past Surgical History HEENT Surgical History: Reports: Tonsillectomy Social & Family History - Family History Family Medical History: Noncontributory Cardiac: Reports: CAD, High Cholesterol, Heart Failure, Hypertension Other Cardiac Family History: Mother Respiratory: Reports: Asthma, COPD : Reports: Renal Disease/Insufficiency Other Family History: Sister. Musculoskeletal: Reports: Back pain, Chronic Neurological: Reports: CVA Psychiatric: Reports: Anxiety, Depression Endocrine/Metabolic: Reports: Diabetes, type II, Obesity/MBI 30+ - Caffeine Use Caffeine Use: Reports: Coffee, Tea - Living Situation & Occupation Living situation: Reports: with Family Occupation: Unemployed ED ROS ENT - Review of Systems Review Of Systems: Comprehensive ROS is negative, except as noted in HPI. ED EXAM, ENT - Physical Exam Exam: See Below Exam Limited By: No Limitations General Appearance: Alert, WD/WN, No Apparent Distress Eye Exam: Bilateral Eye: EOMI, Normal Inspection, PERRL Ears: Normal External Exam, Normal Canal, Hearing Grossly Normal, Normal TMs Nose: Normal Inspection, Normal Mucousa, No Blood Mouth/Throat: Other (right lower gums erythematous/swelling. ) Head: Atraumatic, Normocephalic Neck: Other (positive right anterior cervical adenopathy) Respiratory/Chest: No Respiratory Distress, Lungs Clear, Normal Breath Sounds, No Accessory Muscle Use, Chest Non-Tender Cardiovascular: Normal Peripheral Pulses, Regular Rate, Rhythm, No Edema, No Gallop, No JVD, No Murmur, No Rub GI/Abdominal: Normal Bowel Sounds, Soft, Non-Tender, No Organomegaly, No Distention, No Abnormal Bruit, No Mass (Female) Exam: Deferred Rectal (Female) Exam: Deferred Back: Normal Inspection, Full Range of Motion Extremities: Normal Inspection, Normal Range of Motion, Non-Tender, No Pedal Edema, Normal Capillary Refill Neurological: Alert, Oriented, CN II-XII Intact, Normal Cognition, Normal Gait, Normal Reflexes, No Motor/Sensory Deficits Psychiatric: Normal Affect, Normal Mood Skin: Warm, Dry, Intact, Normal Color, No Rash Lymphatic: Other (right anterior cervical +2.) Course - Vital Signs Last Recorded V/S: Last Vital Signs Temp 97.6 F 08/24/19 14:18 Pulse 99 08/24/19 14:18 Resp 18 08/24/19 14:18 BP 139/86 08/24/19 14:18 Pulse Ox 98 08/24/19 14:18 - Orders/Labs/Meds Meds: Medications Discontinued Medications Generic Name Dose Route Start Last Admin Trade Name Reza PRN Reason Stop Dose Admin Amoxicillin 500 mg 08/24/19 14:53 Amoxil PO 08/24/19 14:54 ONETIME ONE Oxycodone/Acetaminophen 1 tab 08/24/19 14:54 Percocet 325-5 Mg PO 08/24/19 14:55 ONETIME ONE Departure - Departure Time of Disposition: 14:57 Disposition: Home, Self-Care 01 Condition: Fair Clinical Impression: Dental abscess, Dental caries extending into dentin - Discharge Information *PRESCRIPTION DRUG MONITORING PROGRAM REVIEWED*: No *COPY OF PRESCRIPTION DRUG MONITORING REPORT IN PATIENT KENY: No Instructions: Dental Abscess, [id number] Forms: ED Department Discharge Additional Instructions: follow-up with dentistry as soon as possible May use extra strength Tylenol 500 mg 1 orally every 6 hours as needed for pain rx: amoxicillin 500 mg orally twice daily 10 days Percocet 5/325 mg 1 every 4 hours as needed for pain May use heat pack to the right side of the face as tolerated Sepsis Event Note - Evaluation Sepsis Screening Result: No Definite Risk - Focused Exam Vital Signs: Vital Signs Temp Pulse Resp BP Pulse Ox 08/24/19 14:18 97.6 F 99 18 139/86 98 Date Exam was Performed: 08/24/19 Time Exam was Performed: 15:00 I have read and agree with the documentation that has been completed regarding this visit. By signing this record, I attest that the documentation was completed in my physical presence and is an accurate record of the encounter.
[2019-08-24] MEDS ORDERED: Amoxicillin 500 MG Cap ONE (15:06)
[2019-08-24] MEDS ORDERED: Acetaminophen/oxyCODONE 325-5 MG Tab ONE (15:06)
== END 2019-08-24 15:13 | disposition home or self-care (01) ==
LOC: DL.ED 14:01
DX: K04.7 Periapical abscess without sinus (principal); K02.9 Dental caries, unspecified; K21.9 Gastro-esophageal reflux disease without esophagitis; E11.9 Type 2 diabetes mellitus without complications; E66.9 Obesity, unspecified; F41.9 Anxiety disorder, unspecified; F32.9 Major depressive disorder, single episode, unspecified; Z68.41 Body mass index [BMI] 40.0-44.9, adult; Z79.899 Other long term (current) drug therapy; Z88.4 Allergy status to anesthetic agent; Z88.6 Allergy status to analgesic agent; Z88.8 Allergy status to other drugs, medicaments and biological substances; Z91.041 Radiographic dye allergy status; Z91.018 Allergy to other foods
CPT/HCPCS: 99282; A9270

== ENCOUNTER 2019-09-24 20:55 | Emergency (ER) | payer MEDICAID ==
[2019-09-24 21:21] VITALS: BP 162/89; PULSE 74
[2019-09-24] MEDS ORDERED: Ketorolac 30 MG/ML SDV IVPUSH ONE (22:00)
[2019-09-24] MEDS ORDERED: LORazepam 2 MG/ML SDV IVPUSH ONE (22:01)
--- NOTE | 2019-09-24 22:05 | EDM.PDOC ---
ED HPI GENERAL MEDICAL PROBLEM - General Chief Complaint: General Stated Complaint: AMB Time Seen by Provider: 09/24/19 21:30 Source of Information: Reports: Patient, EMS, EMS Notes Reviewed, Family, RN, RN Notes Reviewed History Limitations: Reports: No Limitations - History of Present Illness INITIAL COMMENTS - FREE TEXT/NARRATIVE: patient presents to ER per [facility] with complaint of headache, dizziness,anxiety. Patient states she has a history of anxiety, takes nothing for the anxiety, but uses focal points, breathing techniques to help her through the anxiety attacks. Patient denies any chest pain. Patient states she has had a headache that has come and gone today, which she felt was different than when she normally has a panic attack. Patient states she had a cough a few weeks ago and was sick. Patient denies fever or chills, chest pains or shortness of breath, N/ V/D. Onset: Today, Sudden - Related Data Allergies Allergy/AdvReac Type Severity Reaction Status Date / Time epinephrine Allergy Difficulty Verified 08/24/19 14:24 Breathing ibuprofen Allergy Difficulty Verified 08/24/19 14:24 Breathing Iodinated Contrast Media Allergy Hives Verified 08/24/19 14:24 [Iodinated Contrast Media - Oral and] ketorolac [From Toradol] Allergy Rash Verified 08/24/19 14:24 lidocaine Allergy Difficulty Verified 08/24/19 14:24 Breathing pineapple [Pineapple] Allergy Hives Verified 08/24/19 14:24 Home Meds: Home Meds Omeprazole 20 mg PO DAILY PRN 04/16/17 [History] Multivitamin [Multi-Day Vitamins] 1 tab PO DAILY 08/07/18 [History] Sertraline [Zoloft] 50 mg PO BID 08/07/18 [History] Past Medical History - Past Health History Medical/Surgical History: Denies Medical/Surgical History HEENT History: Reports: Impaired Vision Cardiovascular History: Reports: None, Hypertension Respiratory History: Reports: None Gastrointestinal History: Reports: GERD 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 History: Reports: None 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: Musculoskeletal History: Reports: Arthritis, Osteoarthritis Other Musculoskeletal History: CHRONIC L)KNEE PAIN Neurological History: Reports: None Psychiatric History: Reports: Anxiety, Depression, Panic Attack Endocrine/Metabolic History: Reports: Diabetes, Type II, Obesity/BMI 30+ Hematologic History: Reports: None Immunologic History: Reports: None Oncologic (Cancer) History: Reports: None Dermatologic History: Reports: Other (See Below) Other Dermatologic History: skin graft to right lower leg - Infectious Disease History Infectious Disease History: Reports: Chicken Pox - Past Surgical History Head Surgeries/Procedures: Reports: None HEENT Surgical History: Reports: Tonsillectomy Social & Family History - Family History Family Medical History: Noncontributory Cardiac: Reports: CAD, High Cholesterol, Heart Failure, Hypertension Other Cardiac Family History: Mother Respiratory: Reports: Asthma, COPD : Reports: Renal Disease/Insufficiency Other Family History: Sister. Musculoskeletal: Reports: Back pain, Chronic Neurological: Reports: CVA Psychiatric: Reports: Anxiety, Depression Endocrine/Metabolic: Reports: Diabetes, type II, Obesity/MBI 30+ - Tobacco Use Smoking Status *Q: Unknown Ever Smoked Second Hand Smoke Exposure: Yes - Caffeine Use Caffeine Use: Reports: Coffee - Recreational Drug Use Recreational Drug Use: No - Living Situation & Occupation Living situation: Reports: with Family Occupation: Unemployed ED ROS GENERAL - Review of Systems Review Of Systems: Comprehensive ROS is negative, except as noted in HPI. ED EXAM, GENERAL - Physical Exam Exam: See Below Exam Limited By: No Limitations General Appearance: Alert Eye Exam: Bilateral Eye: EOMI, Normal Inspection Ears: Normal External Exam, Hearing Grossly Normal Nose: Normal Inspection Throat/Mouth: Normal Inspection, Normal Voice, No Airway Compromise Head: Atraumatic, Normocephalic Neck: Normal Inspection, Supple, Non-Tender, Full Range of Motion Respiratory/Chest: No Respiratory Distress, Lungs Clear, Normal Breath Sounds, No Accessory Muscle Use, Chest Non-Tender Cardiovascular: Normal Peripheral Pulses, Regular Rate, Rhythm, No Edema, No Gallop, No JVD, No Murmur, No Rub Peripheral Pulses: 2+: Radial (L), Radial (R) GI/Abdominal: Normal Bowel Sounds, Soft, Non-Tender (Female) Exam: Deferred Rectal (Female) Exam: Deferred Back Exam: Normal Inspection, Full Range of Motion, NT Extremities: Normal Inspection, Normal Range of Motion, Non-Tender, Normal Capillary Refill, No Pedal Edema Neurological: Alert, Oriented, CN II-XII Intact, Normal Cognition, Normal Gait, Normal Reflexes, No Motor/Sensory Deficits Psychiatric: Normal Mood, Anxious Skin Exam: Warm, Dry, Intact, Normal Color, No Rash Lymphatic: No Adenopathy Course - Vital Signs Last Recorded V/S: Last Vital Signs Temp 98.0 F 09/24/19 21:16 Pulse 74 09/24/19 21:16 Resp 20 09/24/19 21:16 BP 162/89 H 09/24/19 21:16 Pulse Ox 98 09/24/19 21:16 - Orders/Labs/Meds Orders: Active Orders 24 hr Category Date Time Status Head wo Cont [CT] Stat Exams 09/24/19 23:31 Stop Req Head wo Cont [CT] Stat Exams 09/25/19 00:17 Taken Labs: Laboratory Tests 09/24/19 09/24/19 09/24/19 Range/Units 21:01 21:01 22:49 WBC 10.3 H (5.0-10.0) 10^3/uL RBC 4.89 (4.2-5.4) 10^6/uL Hgb 12.7 (12.0-16.0) g/dL Hct 39.4 (37.0-47.0) % MCV 80.6 (80-100) fL MCH 26.0 L (27.0-34.0) pg MCHC 32.2 L (33.0-35.0) g/dL Plt Count 342 (150-450) 10^3/uL Neut % (Auto) 60.6 (42.2-75.2) % Lymph % (Auto) 31.6 (20.5-50.1) % Wilcox % (Auto) 5.5 (2-8) % Eos % (Auto) 2.1 (1.0-3.0) % Baso % (Auto) 0.2 (0.0-1.0) % Sodium (135-145) mmol/L Potassium (3.6-5.0) mmol/L Chloride (101-111) mmol/L Carbon Dioxide (21.0-31.0) mmol/L Anion Gap BUN (7-18) mg/dL Creatinine (0.6-1.3) mg/dL Est Cr Clr Drug Dosing mL/min Estimated GFR (MDRD) BUN/Creatinine Ratio Glucose (74-105) mg/dL Calcium (8.4-10.2) mg/dl Total Bilirubin (0.2-1.0) mg/dL AST (10-42) IU/L ALT (10-60) IU/L Alkaline Phosphatase (42-121) IU/L Total Protein (6.7-8.2) g/dl Albumin (3.2-5.5) g/dl Globulin Albumin/Globulin Ratio Urine Color Yellow (YELLOW) Urine Appearance Clear (CLEAR) Urine pH 7.0 (5.0-9.0) Ur Specific Holbrook 1.015 (1.005-1.030) Urine Protein Negative (NEGATIVE) Urine Glucose (UA) Negative (NEGATIVE) Urine Ketones Negative (NEGATIVE) Urine Occult Blood Small H (NEGATIVE) Urine Nitrite Negative (NEGATIVE) Urine Bilirubin Negative (NEGATIVE) Urine Urobilinogen 0.2 (0.2-1.0) mg/dL Ur Leukocyte Esterase Small H (NEGATIVE) Urine RBC 0-5 /HPF Urine WBC 20-30 H (0-5/HPF) /HPF Ur Epithelial Cells Occasional (NOT SEEN) /HPF Amorphous Sediment Few (NOT SEEN) /HPF Urine Bacteria Few (0-FEW/HPF) /HPF Urine Mucus Rare (NOT SEEN) /LPF Urine Opiates Screen Negative (NEGATIVE) Ur Oxycodone Screen Negative (NEGATIVE) Urine Methadone Screen Negative (NEGATIVE) Ur Barbiturates Screen Negative (NEGATIVE) U Tricyclic Antidepress Negative (NEGATIVE) Ur Phencyclidine Scrn Negative (NEGATIVE) Ur Amphetamine Screen Negative (NEGATIVE) U Methamphetamines Scrn Negative (NEGATIVE) Urine MDMA Screen Negative (NEGATIVE) U Benzodiazepines Scrn Negative (NEGATIVE) Urine Cocaine Screen Negative (NEGATIVE) U Marijuana (THC) Screen Negative (NEGATIVE) 09/24/19 Range/Units 22:49 WBC (5.0-10.0) 10^3/uL RBC (4.2-5.4) 10^6/uL Hgb (12.0-16.0) g/dL Hct (37.0-47.0) % MCV (80-100) fL MCH (27.0-34.0) pg MCHC (33.0-35.0) g/dL Plt Count (150-450) 10^3/uL Neut % (Auto) (42.2-75.2) % Lymph % (Auto) (20.5-50.1) % Wilcox % (Auto) (2-8) % Eos % (Auto) (1.0-3.0) % Baso % (Auto) (0.0-1.0) % Sodium 133 L (135-145) mmol/L Potassium 3.2 L (3.6-5.0) mmol/L Chloride 99 L (101-111) mmol/L Carbon Dioxide 25.0 (21.0-31.0) mmol/L Anion Gap 12.2 BUN 12 (7-18) mg/dL Creatinine 0.6 (0.6-1.3) mg/dL Est Cr Clr Drug Dosing 85.57 mL/min Estimated GFR (MDRD) > 60 BUN/Creatinine Ratio 20.00 Glucose 133 H (74-105) mg/dL Calcium 8.8 (8.4-10.2) mg/dl Total Bilirubin 0.3 (0.2-1.0) mg/dL AST 20 (10-42) IU/L ALT 24 (10-60) IU/L Alkaline Phosphatase 115 (42-121) IU/L Total Protein 7.8 (6.7-8.2) g/dl Albumin 3.8 (3.2-5.5) g/dl Globulin 4.0 Albumin/Globulin Ratio 0.95 Urine Color (YELLOW) Urine Appearance (CLEAR) Urine pH (5.0-9.0) Ur Specific Holbrook (1.005-1.030) Urine Protein (NEGATIVE) Urine Glucose (UA) (NEGATIVE) Urine Ketones (NEGATIVE) Urine Occult Blood (NEGATIVE) Urine Nitrite (NEGATIVE) Urine Bilirubin (NEGATIVE) Urine Urobilinogen (0.2-1.0) mg/dL Ur Leukocyte Esterase (NEGATIVE) Urine RBC /HPF Urine WBC (0-5/HPF) /HPF Ur Epithelial Cells (NOT SEEN) /HPF Amorphous Sediment (NOT SEEN) /HPF Urine Bacteria (0-FEW/HPF) /HPF Urine Mucus (NOT SEEN) /LPF Urine Opiates Screen (NEGATIVE) Ur Oxycodone Screen (NEGATIVE) Urine Methadone Screen (NEGATIVE) Ur Barbiturates Screen (NEGATIVE) U Tricyclic Antidepress (NEGATIVE) Ur Phencyclidine Scrn (NEGATIVE) Ur Amphetamine Screen (NEGATIVE) U Methamphetamines Scrn (NEGATIVE) Urine MDMA Screen (NEGATIVE) U Benzodiazepines Scrn (NEGATIVE) Urine Cocaine Screen (NEGATIVE) U Marijuana (THC) Screen (NEGATIVE) Meds: Medications Discontinued Medications Generic Name Dose Route Start Last Admin Trade Name Freq PRN Reason Stop Dose Admin Butorphanol Tartrate 2 mg 09/25/19 00:54 09/25/19 01:02 Stadol IVPUSH 09/25/19 00:55 2 mg ONETIME ONE Administration Diphenhydramine HCl 25 mg 09/24/19 23:31 09/24/19 23:51 Benadryl IVPUSH 09/24/19 23:32 25 mg ONETIME ONE Administration Ketorolac Tromethamine 30 mg 09/24/19 22:00 09/24/19 22:31 Toradol IVPUSH 09/24/19 22:01 30 mg ONETIME ONE Administration Lorazepam 0.5 mg 09/24/19 22:01 09/24/19 22:33 Ativan IVPUSH 09/24/19 22:02 0.5 mg ONETIME ONE Administration Nitrofurantoin Macrocrystals 100 mg 09/24/19 23:33 09/24/19 23:50 Macrobid PO 09/24/19 23:34 100 mg ONETIME ONE Administration Potassium Chloride 20 meq 09/24/19 23:31 09/24/19 23:50 Klor-Con 10 PO 09/24/19 23:32 20 meq ONETIME ONE Administration - Radiology Interpretation Free Text/Narrative:: Head CT wo contrast: FINDINGS: Brain: Normal. No hemorrhage. Unremarkable white matter. No mass effect. Ventricles: Normal. No hydrocephalus. Bones/joints: Normal. Skull base and overlying calvarium are intact. No lytic or osteosclerotic lesions. Sinuses: Visualized sinuses are unremarkable. No fluid levels. Mastoid air cells: Visualized mastoid air cells are well aerated. Soft tissues: Unremarkable. IMPRESSION: No acute intracranial abnormality. Thank you for allowing us to participate in the care of your patient. Dictated and Authenticated by: Stefano Rossi MD 09/25/2019 12:49 AM Central Time ([place] & [place]) See rad report Departure - Departure Time of Disposition: 01:05 Disposition: Home, Self-Care 01 Condition: Fair Clinical Impression: Anxiety Headache Qualifiers: Headache type: unspecified Headache chronicity pattern: unspecified pattern Intractability: not intractable Qualified Code(s): R51 - Headache - Discharge Information *PRESCRIPTION DRUG MONITORING PROGRAM REVIEWED*: No *COPY OF PRESCRIPTION DRUG MONITORING REPORT IN PATIENT KENY: No Instructions: Panic Attack, [id number], General Headache Without Cause Forms: ED Department Discharge Additional Instructions: Drink plenty of fluids RX: Macrobid, Potassium Follow up with your primary care facility May use heat to the back of the neck as tolerated Sepsis Event Note - Evaluation Sepsis Screening Result: No Definite Risk - Focused Exam Vital Signs: Vital Signs Temp Pulse Resp BP Pulse Ox 09/24/19 21:16 98.0 F 74 20 162/89 H 98 Date Exam was Performed: 09/25/19 Time Exam was Performed: 01:05 - My Orders Last 24 Hours: My Active Orders 09/24/19 23:31 Head wo Cont [CT] Stat 09/25/19 00:17 Head wo Cont [CT] Stat - Assessment/Plan Last 24 Hours: My Active Orders 09/24/19 23:31 Head wo Cont [CT] Stat 09/25/19 00:17 Head wo Cont [CT] Stat
[2019-09-24 23:16] LABS: ANION GAP 12.2; CHLORIDE,CL 99 mmol/L (101-111); SODIUM,NA 133 mmol/L (135-145)
[2019-09-24] MEDS ORDERED: diphenhydrAMINE 50 MG/ML SDV IVPUSH ONE (23:31)
[2019-09-24] MEDS ORDERED: Potassium Chloride 10 MEQ Tab.ER PO ONE (23:31)
[2019-09-24] MEDS ORDERED: Nitrofurantoin Monohydrate/Macrocrystalline 100 MG Cap PO ONE (23:33)
[2019-09-25] MEDS ORDERED: Butorphanol 2 MG/ML SDV IVPUSH ONE (00:54)
== END 2019-09-25 01:17 | disposition home or self-care (01) ==
LOC: DL.ED 20:55
DX: F41.9 Anxiety disorder, unspecified (principal); R51 Headache; K21.9 Gastro-esophageal reflux disease without esophagitis; E11.9 Type 2 diabetes mellitus without complications; E66.9 Obesity, unspecified; I10 Essential (primary) hypertension; F32.9 Major depressive disorder, single episode, unspecified; Z68.42 Body mass index [BMI] 45.0-49.9, adult; Z79.899 Other long term (current) drug therapy
CPT/HCPCS: 36415; 70450; 80053; 80305; 81001; 85025; 96374; 96375; 99285; A9270; J0595; J1200; J1885; J2060

== ENCOUNTER 2019-10-10 10:51 | Emergency (ER) | payer MEDICAID ==
[2019-10-10 11:24] VITALS: BP 112/78; PULSE 91
--- NOTE | 2019-10-10 11:27 | EDM.PDOC ---
<Arely Galvan - Last Filed: 10/10/19 11:22> ED HPI GENERAL MEDICAL PROBLEM - General Chief Complaint: Upper Extremity Injury/Pain Stated Complaint: HEADACHE, SHOULDER PAIN Time Seen by Provider: 10/10/19 11:15 Source of Information: Reports: Patient History Limitations: Reports: No Limitations - History of Present Illness INITIAL COMMENTS - FREE TEXT/NARRATIVE: Patient presents to the ED by private vehicle with complaints of right shoulder pain radiating into her neck. The patient states that she has experienced right shoulder pain for the past 5 months but the pain has been increasing in the past 5 weeks. She describes the pain as anterior/superior, 6/10, sharp, and intermittent. The pain increases with movement, specifically flexion over 90 degrees and abduction. The patient has no recent history of injury. She did have a right shoulder dislocation over 20 years ago. The patient has tried icy hot, hot packs, and tylenol for pain. She is right handed. The patient states that she has made attempts to get to [place] to see an orthopedic provider, as she requests to not see a provider in [place], however, she has been unable to find a ride. She does have an appointment scheduled for later October. 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: Acetaminophen, Cold Therapy, Heat Therapy - Related Data Allergies Allergy/AdvReac Type Severity Reaction Status Date / Time epinephrine Allergy Difficulty Verified 10/10/19 11:19 Breathing ibuprofen Allergy Difficulty Verified 10/10/19 11:19 Breathing Iodinated Contrast Media Allergy Hives Verified 10/10/19 11:19 [Iodinated Contrast Media - Oral and] ketorolac [From Toradol] Allergy Rash Verified 10/10/19 11:19 lidocaine Allergy Difficulty Verified 10/10/19 11:19 Breathing pineapple [Pineapple] Allergy Hives Verified 10/10/19 11:19 Home Meds: Home Meds Omeprazole 20 mg PO DAILY PRN 04/16/17 [History] Multivitamin [Multi-Day Vitamins] 1 tab PO DAILY 08/07/18 [History] Sertraline [Zoloft] 50 mg PO BID 08/07/18 [History] Past Medical History - Past Health History Medical/Surgical History: Denies Medical/Surgical History HEENT History: Reports: Impaired Vision Cardiovascular History: Reports: None, Hypertension Respiratory History: Reports: None Gastrointestinal History: Reports: GERD 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 History: Reports: None 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: Musculoskeletal History: Reports: Arthritis, Osteoarthritis Other Musculoskeletal History: CHRONIC L)KNEE PAIN Neurological History: Reports: None Psychiatric History: Reports: Anxiety, Depression, Panic Attack Endocrine/Metabolic History: Reports: Diabetes, Type II, Obesity/BMI 30+ Hematologic History: Reports: None Immunologic History: Reports: None Oncologic (Cancer) History: Reports: None Dermatologic History: Reports: Other (See Below) Other Dermatologic History: skin graft to right lower leg - Infectious Disease History Infectious Disease History: Reports: Chicken Pox - Past Surgical History Head Surgeries/Procedures: Reports: None HEENT Surgical History: Reports: Tonsillectomy Social & Family History - Family History Family Medical History: Noncontributory Cardiac: Reports: CAD, High Cholesterol, Heart Failure, Hypertension Other Cardiac Family History: Mother Respiratory: Reports: Asthma, COPD : Reports: Renal Disease/Insufficiency Other Family History: Sister. Musculoskeletal: Reports: Back pain, Chronic Neurological: Reports: CVA Psychiatric: Reports: Anxiety, Depression Endocrine/Metabolic: Reports: Diabetes, type II, Obesity/MBI 30+ - Caffeine Use Caffeine Use: Reports: Coffee - Living Situation & Occupation Living situation: Reports: with Family Occupation: Unemployed Review of Systems - Review of Systems Review Of Systems: Comprehensive ROS is negative, except as noted in HPI. ED EXAM, GENERAL - Physical Exam Exam: See Below Exam Limited By: No Limitations General Appearance: Alert, No Apparent Distress Head: Atraumatic, Normocephalic, Sinus Tenderness Neck: Non-Tender, Full Range of Motion Respiratory/Chest: No Respiratory Distress, Lungs Clear, Normal Breath Sounds Cardiovascular: Normal Peripheral Pulses, Regular Rate, Rhythm, No Murmur Extremities: Arm Pain, Limited Range of Motion (limited right shoulder range of motion in flexion, abduction, internal and external rotation) Neurological: Alert, Oriented, No Motor/Sensory Deficits Psychiatric: Normal Affect, Normal Mood Course - Vital Signs Last Recorded V/S: Last Vital Signs Temp 97.3 F 10/10/19 10:55 Pulse 91 10/10/19 10:55 Resp 16 10/10/19 10:55 BP 112/78 10/10/19 10:55 Pulse Ox 99 10/10/19 10:55 Departure - Departure Time of Disposition: 11:35 Disposition: Home, Self-Care 01 Condition: Good Clinical Impression: Frozen shoulder Qualifiers: Laterality: right Qualified Code(s): M75.01 - Adhesive capsulitis of right shoulder - Discharge Information *PRESCRIPTION DRUG MONITORING PROGRAM REVIEWED*: Not Applicable *COPY OF PRESCRIPTION DRUG MONITORING REPORT IN PATIENT KENY: Not Applicable Instructions: Shoulder Range of Motion Exercises, Shoulder Pain, [id number] Forms: ED Department Discharge Additional Instructions: Rx: Decadron 4 mg Follow-up with Orthopedics as planned in October assisted shoulder range of motion exercises several times per day Ice shoulder Sepsis Event Note - Focused Exam Vital Signs: Vital Signs Temp Pulse Resp BP Pulse Ox 10/10/19 10:55 97.3 F 91 16 112/78 99 <Justo Solis - Last Filed: 10/10/19 11:44> ED HPI GENERAL MEDICAL PROBLEM Right Shoulder Pain Score (Numeric/FACES): 6 Course - Re-Assessments/Exams Free Text/Narrative Re-Assessment/Exam: 10/10/19 11:44 I personally performed or re-performed the physical examination and medical decision making. I have verified all student documentation or findings, including history, physical exam and/or medical decision making. Sepsis Event Note - Focused Exam Date Exam was Performed: 10/10/19 Time Exam was Performed: 11:43
== END 2019-10-10 11:51 | disposition home or self-care (01) ==
LOC: DL.ED 10:51
DX: M75.01 Adhesive capsulitis of right shoulder (principal); I10 Essential (primary) hypertension; E11.9 Type 2 diabetes mellitus without complications; E66.9 Obesity, unspecified; F41.9 Anxiety disorder, unspecified; F32.9 Major depressive disorder, single episode, unspecified; Z88.6 Allergy status to analgesic agent; Z91.018 Allergy to other foods; Z91.041 Radiographic dye allergy status; Z88.8 Allergy status to other drugs, medicaments and biological substances; Z79.899 Other long term (current) drug therapy
CPT/HCPCS: 99283

== ENCOUNTER 2019-11-26 23:28 | Emergency (ER) | payer MEDICAID ==
[2019-11-26] MEDS ORDERED: Cephalexin 500 MG Cap PO ONE (23:29)
[2019-11-26] MEDS ORDERED: Acetaminophen/oxyCODONE 325-5 MG Tab PO ONE (23:29)
[2019-11-26 23:34] VITALS: BP 121/96; PULSE 108
[2019-11-27] MEDS ORDERED: Cephalexin 500 MG Cap PO ONE (00:11)
[2019-11-27] MEDS ORDERED: Acetaminophen/oxyCODONE 325-5 MG Tab PO ONE (00:11)
[2019-11-27] MEDS ORDERED: Acetaminophen/oxyCODONE 325-5 MG Tab ONE (00:19)
[2019-11-27] MEDS ORDERED: Cephalexin 500 MG Cap ONE (00:19)
--- NOTE | 2019-11-27 00:19 | EDM.PDOC ---
ED HPI GENERAL MEDICAL PROBLEM - General Chief Complaint: ENT Problem Stated Complaint: AMBULANCE Time Seen by Provider: 11/26/19 23:40 Source of Information: Reports: Patient, EMS - History of Present Illness INITIAL COMMENTS - FREE TEXT/NARRATIVE: ED via ambulance with c/o severe dental pain Waiting for call back from dentist in [place] for lower teeth extraction, Since July,issue with lower incisor, broken prior filling fallen out, increasing pain, Ran out of oxy and last antibiotic completed one week ago. No primary care. Has been using orajel frequently, had been using clove and helped some. Tylenol 325 to 650mg about every 4 hours. Right Lower Gums Pain Score (Numeric/FACES): 7 - Related Data Allergies Allergy/AdvReac Type Severity Reaction Status Date / Time epinephrine Allergy Difficulty Verified 11/26/19 23:35 Breathing ibuprofen Allergy Difficulty Verified 11/26/19 23:35 Breathing Iodinated Contrast Media Allergy Hives Verified 11/26/19 23:35 [Iodinated Contrast Media - Oral and] ketorolac [From Toradol] Allergy Rash Verified 11/26/19 23:35 lidocaine Allergy Difficulty Verified 11/26/19 23:35 Breathing pineapple [Pineapple] Allergy Hives Verified 11/26/19 23:35 Home Meds: Home Meds Omeprazole 20 mg PO DAILY PRN 04/16/17 [History] Multivitamin [Multi-Day Vitamins] 1 tab PO DAILY 08/07/18 [History] Sertraline [Zoloft] 50 mg PO BID 08/07/18 [History] Past Medical History - Past Health History Medical/Surgical History: Denies Medical/Surgical History HEENT History: Reports: Impaired Vision Cardiovascular History: Reports: Hypertension Respiratory History: Reports: None Gastrointestinal History: Reports: GERD 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: Musculoskeletal History: Reports: Arthritis, Osteoarthritis Other Musculoskeletal History: CHRONIC L)KNEE PAIN Neurological History: Reports: None Psychiatric History: Reports: Anxiety, Depression, Panic Attack Endocrine/Metabolic History: Reports: Diabetes, Type II, Obesity/BMI 30+ Hematologic History: Reports: None Immunologic History: Reports: None Oncologic (Cancer) History: Reports: None Dermatologic History: Reports: Other (See Below) Other Dermatologic History: skin graft to right lower leg - Infectious Disease History Infectious Disease History: Reports: Chicken Pox - Past Surgical History Head Surgeries/Procedures: Reports: None HEENT Surgical History: Reports: Tonsillectomy Social & Family History - Family History Family Medical History: Noncontributory Cardiac: Reports: CAD, High Cholesterol, Heart Failure, Hypertension Other Cardiac Family History: Mother Respiratory: Reports: Asthma, COPD : Reports: Renal Disease/Insufficiency Other Family History: Sister. Musculoskeletal: Reports: Back pain, Chronic Neurological: Reports: CVA Psychiatric: Reports: Anxiety, Depression Endocrine/Metabolic: Reports: Diabetes, type II, Obesity/MBI 30+ - Tobacco Use Smoking Status *Q: Never Smoker Second Hand Smoke Exposure: No - Caffeine Use Caffeine Use: Reports: Coffee - Recreational Drug Use Recreational Drug Use: No - Living Situation & Occupation Living situation: Reports: with Family Occupation: Unemployed ED ROS ENT - Review of Systems Review Of Systems: Comprehensive ROS is negative, except as noted in HPI. ED EXAM, ENT - Physical Exam Exam: See Below Exam Limited By: No Limitations General Appearance: Alert, Moderate Distress Eye Exam: Bilateral Eye: EOMI Ears: Normal External Exam, Hearing Grossly Normal Nose: Normal Inspection Mouth/Throat: Dental Pain, Dental Tenderness, Gum Swelling, Other (poor dentation. large cavity,broken tooth right lower incisor. ). No: Normal Teeth Head: Atraumatic, Normocephalic Neck: Lymphadenopathy (R) Respiratory/Chest: No Respiratory Distress, Lungs Clear, Normal Breath Sounds Cardiovascular: Regular Rate, Rhythm GI/Abdominal: Normal Bowel Sounds Extremities: Normal Inspection Neurological: Alert, Oriented Psychiatric: Normal Affect, Normal Mood Skin: Warm, Dry, Intact, Normal Color Course - Vital Signs Last Recorded V/S: Last Vital Signs Temp 96.8 F L 11/26/19 23:28 Pulse 108 H 11/26/19 23:28 Resp 18 11/26/19 23:28 BP 121/96 H 11/26/19 23:28 Pulse Ox 97 11/26/19 23:28 - Orders/Labs/Meds Meds: Medications Discontinued Medications Generic Name Dose Route Start Last Admin Trade Name Freq PRN Reason Stop Dose Admin Cephalexin 500 mg 11/27/19 00:11 11/27/19 00:16 Keflex PO 11/27/19 00:12 500 mg ONETIME ONE Administration Cephalexin Confirm 11/27/19 00:19 11/27/19 00:23 Keflex Administered 11/27/19 00:20 Not Given Dose 500 mg .ROUTE .STK-MED ONE Oxycodone/Acetaminophen 1 tab 11/27/19 00:11 11/27/19 00:16 Percocet 325-5 Mg PO 11/27/19 00:12 1 tab ONETIME ONE Administration Oxycodone/Acetaminophen Confirm 11/27/19 00:19 11/27/19 00:23 Percocet 325-5 Mg Administered 11/27/19 00:20 Not Given Dose 1 tab .ROUTE .STK-MED ONE - Re-Assessments/Exams Free Text/Narrative Re-Assessment/Exam: 11/27/19 02:37 attempted dental cement/packing. Patient usable to tolerate any manipulation or contact in area. Departure - Departure Time of Disposition: 00:15 Disposition: Home, Self-Care 01 Condition: Good Clinical Impression: Pain due to dental caries, Dental abscess - Discharge Information *PRESCRIPTION DRUG MONITORING PROGRAM REVIEWED*: Yes *COPY OF PRESCRIPTION DRUG MONITORING REPORT IN PATIENT KENY: No Instructions: Dental Abscess, [id number] Forms: ED Department Discharge Additional Instructions: oxycodone/APAP 5/325 one every 6 hours as needed #7 Keflex 500mg one three times daily for 7 days continue ora jel clove oil as needed follow up with dentist follow with primary care for ongoing pain medication need if unable to connect with dentist Sepsis Event Note - Evaluation Sepsis Screening Result: No Definite Risk - Focused Exam Vital Signs: Vital Signs Temp Pulse Resp BP Pulse Ox 11/26/19 23:28 96.8 F L 108 H 18 121/96 H 97 Date Exam was Performed: 11/27/19 Time Exam was Performed: 02:36
== END 2019-11-27 00:25 | disposition home or self-care (01) ==
LOC: DL.ED 23:28
DX: K04.7 Periapical abscess without sinus (principal); K02.9 Dental caries, unspecified; I10 Essential (primary) hypertension; K21.9 Gastro-esophageal reflux disease without esophagitis; M19.90 Unspecified osteoarthritis, unspecified site; E11.9 Type 2 diabetes mellitus without complications; F41.0 Panic disorder [episodic paroxysmal anxiety]; F32.9 Major depressive disorder, single episode, unspecified; E66.9 Obesity, unspecified; Z68.41 Body mass index [BMI] 40.0-44.9, adult; Z88.8 Allergy status to other drugs, medicaments and biological substances; Z88.6 Allergy status to analgesic agent; Z91.018 Allergy to other foods; Z91.041 Radiographic dye allergy status; Z79.899 Other long term (current) drug therapy
CPT/HCPCS: 99283; A9270

== ENCOUNTER 2021-07-30 19:24 | Emergency (ER) | payer MEDICAID ==
[2021-07-30] MEDS ORDERED: Amoxicillin/Clavulanate K 875-125 MG Tab PO ONE (19:25)
--- NOTE | 2021-07-30 19:37 | EDM.PDOC ---
ED HPI GENERAL MEDICAL PROBLEM - General Stated Complaint: CHEST PAIN AND SICK Time Seen by Provider: 07/30/21 20:15 Source of Information: Reports: Patient History Limitations: Reports: No Limitations - History of Present Illness INITIAL COMMENTS - FREE TEXT/NARRATIVE: ED with c/o congestion, started last week with sinus, head cold then moved down, cough tongiht, dry non roductive, anterior chest pain while out doing errands and walking in cold, no pain now but mild cough. - Related Data Allergies Allergy/AdvReac Type Severity Reaction Status Date / Time epinephrine Allergy Difficulty Verified 11/26/19 23:35 Breathing ibuprofen Allergy Difficulty Verified 11/26/19 23:35 Breathing Iodinated Contrast Media Allergy Hives Verified 11/26/19 23:35 [Iodinated Contrast Media - Oral and] ketorolac [From Toradol] Allergy Rash Verified 11/26/19 23:35 lidocaine Allergy Difficulty Verified 11/26/19 23:35 Breathing pineapple [Pineapple] Allergy Hives Verified 11/26/19 23:35 Home Meds: Home Meds Omeprazole 20 mg PO DAILY PRN 04/16/17 [History] Multivitamin [Multi-Day Vitamins] 1 tab PO DAILY 08/07/18 [History] Sertraline [Zoloft] 50 mg PO BID 08/07/18 [History] Past Medical History - Past Health History Medical/Surgical History: Denies Medical/Surgical History HEENT History: Reports: Impaired Vision Cardiovascular History: Reports: Hypertension Respiratory History: Reports: None Gastrointestinal History: Reports: GERD 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 History: Reports: None [employer] History: Reports: Musculoskeletal History: Reports: Arthritis, Osteoarthritis Other Musculoskeletal History: CHRONIC L)KNEE PAIN Neurological History: Reports: None Psychiatric History: Reports: Anxiety, Depression, Panic Attack Endocrine/Metabolic History: Reports: Diabetes, Type II, Obesity/BMI 30+ Hematologic History: Reports: None Immunologic History: Reports: None Oncologic (Cancer) History: Reports: None Dermatologic History: Reports: Other (See Below) Other Dermatologic History: skin graft to right lower leg - Infectious Disease History Infectious Disease History: Reports: Chicken Pox - Past Surgical History Head Surgeries/Procedures: Reports: None HEENT Surgical History: Reports: Tonsillectomy Social & Family History - Family History Family Medical History: No Pertinent Family History Cardiac: Reports: CAD, High Cholesterol, Heart Failure, Hypertension Other Cardiac Family History: Mother Respiratory: Reports: Asthma, COPD : Reports: Renal Disease/Insufficiency Other Family History: Sister. Musculoskeletal: Reports: Back pain, Chronic Neurological: Reports: CVA Psychiatric: Reports: Anxiety, Depression Endocrine/Metabolic: Reports: Diabetes, type II, Obesity/MBI 30+ - Caffeine Use Caffeine Use: Reports: Coffee - Living Situation & Occupation Living situation: Reports: with Family Occupation: Unemployed ED ROS GENERAL - Review of Systems Review Of Systems: Comprehensive ROS is negative, except as noted in HPI. ED EXAM, GENERAL - Physical Exam Exam: See Below Exam Limited By: No Limitations General Appearance: Alert, No Apparent Distress Eye Exam: Bilateral Eye: EOMI Ears: Normal External Exam, Hearing Grossly Normal Nose: Normal Inspection Throat/Mouth: Normal Inspection Head: Atraumatic, Normocephalic Neck: Normal Inspection Respiratory/Chest: No Respiratory Distress, Lungs Clear, Normal Breath Sounds Cardiovascular: Normal Peripheral Pulses, Regular Rate, Rhythm GI/Abdominal: Normal Bowel Sounds, Soft, Non-Tender Extremities: Normal Inspection, Normal Range of Motion Neurological: Alert, Oriented Psychiatric: Normal Affect, Normal Mood Skin Exam: Warm, Dry, Intact, Normal Color Course - Vital Signs Last Recorded V/S: Last Vital Signs Temp 98.2 F 07/30/21 19:51 Pulse 69 07/30/21 19:51 Resp 18 07/30/21 19:51 BP 174/86 H 07/30/21 19:51 Pulse Ox 98 07/30/21 19:51 - Orders/Labs/Meds Orders: Active Orders 24 hr Category Date Time Status CULTURE BLOOD [BC] Stat Lab 07/30/21 20:00 Received CULTURE URINE [RM] Stat Lab 07/30/21 21:32 Received Labs: Laboratory Tests 07/30/21 07/30/21 07/30/21 Range/Units 19:50 20:00 20:00 WBC 11.2 H (5.0-10.0) 10^3/uL RBC 4.48 (4.2-5.4) 10^6/uL Hgb 11.8 L (12.0-16.0) g/dL Hct 36.4 L (37.0-47.0) % MCV 81.3 (80-100) fL MCH 26.3 L (27.0-34.0) pg MCHC 32.4 L (33.0-35.0) g/dL Plt Count 377 (150-450) 10^3/uL Neut % (Auto) 59.5 (42.2-75.2) % Lymph % (Auto) 33.8 (20.5-50.1) % [place] % (Auto) 3.9 (2-8) % Eos % (Auto) 2.4 (1.0-3.0) % Baso % (Auto) 0.4 (0.0-1.0) % Sodium 138 (136-145) mmol/L Potassium 3.3 L (3.5-5.1) mmol/L Chloride 100 (98-107) mmol/L Carbon Dioxide 26 (21-32) mmol/L Anion Gap 15.3 H (7-13) mEq/L BUN 11 (7-18) mg/dL Creatinine 0.64 (0.55-1.02) mg/dL Est Cr Clr Drug Dosing TNP Estimated GFR (MDRD) > 60 BUN/Creatinine Ratio 17.2 (No establ ref range) Glucose 121 H (70-99) mg/dL Lactic Acid (0.4-2.0) mmol/L Calcium 8.7 (8.5-10.1) mg/dL Total Bilirubin 0.2 (0.2-1.0) mg/dL AST 17 (15-37) U/L ALT 28 (14-59) U/L Alkaline Phosphatase 149 H (46-116) U/L Total Protein 7.7 (6.4-8.2) g/dL Albumin 3.4 (3.4-5.0) g/dL Globulin 4.3 Albumin/Globulin Ratio 0.8 Urine Color (YELLOW) Urine Appearance (CLEAR) Urine pH (5.0-9.0) Ur Specific Loiza (1.005-1.030) Urine Protein (NEGATIVE) Urine Glucose (UA) (NEGATIVE) Urine Ketones (NEGATIVE) Urine Occult Blood (NEGATIVE) Urine Nitrite (NEGATIVE) Urine Bilirubin (NEGATIVE) Urine Urobilinogen (0.2-1.0) mg/dL Ur Leukocyte Esterase (NEGATIVE) Urine RBC (0-5) /HPF Urine WBC (0-5/HPF) /HPF Ur Epithelial Cells (NOT SEEN) /HPF Urine Bacteria (0-FEW/HPF) /HPF Influenza Type A RNA Negative (NEGATIVE) Influenza Type B RNA Negative (NEGATIVE) SARS-CoV-2 RNA (HERMINIA) Negative (NEGATIVE) 07/30/21 07/30/21 Range/Units 20:00 21:32 WBC (5.0-10.0) 10^3/uL RBC (4.2-5.4) 10^6/uL Hgb (12.0-16.0) g/dL Hct (37.0-47.0) % MCV (80-100) fL MCH (27.0-34.0) pg MCHC (33.0-35.0) g/dL Plt Count (150-450) 10^3/uL Neut % (Auto) (42.2-75.2) % Lymph % (Auto) (20.5-50.1) % [place] % (Auto) (2-8) % Eos % (Auto) (1.0-3.0) % Baso % (Auto) (0.0-1.0) % Sodium (136-145) mmol/L Potassium (3.5-5.1) mmol/L Chloride (98-107) mmol/L Carbon Dioxide (21-32) mmol/L Anion Gap (7-13) mEq/L BUN (7-18) mg/dL Creatinine (0.55-1.02) mg/dL Est Cr Clr Drug Dosing Estimated GFR (MDRD) BUN/Creatinine Ratio (No establ ref range) Glucose (70-99) mg/dL Lactic Acid 0.6 (0.4-2.0) mmol/L Calcium (8.5-10.1) mg/dL Total Bilirubin (0.2-1.0) mg/dL AST (15-37) U/L ALT (14-59) U/L Alkaline Phosphatase (46-116) U/L Total Protein (6.4-8.2) g/dL Albumin (3.4-5.0) g/dL Globulin Albumin/Globulin Ratio Urine Color Yellow (YELLOW) Urine Appearance Slightly cloudy (CLEAR) Urine pH 6.0 (5.0-9.0) Ur Specific Loiza <= 1.005 (1.005-1.030) Urine Protein Negative (NEGATIVE) Urine Glucose (UA) Negative (NEGATIVE) Urine Ketones Negative (NEGATIVE) Urine Occult Blood Trace-intact H (NEGATIVE) Urine Nitrite Negative (NEGATIVE) Urine Bilirubin Negative (NEGATIVE) Urine Urobilinogen 0.2 (0.2-1.0) mg/dL Ur Leukocyte Esterase Small H (NEGATIVE) Urine RBC 0-5 (0-5) /HPF Urine WBC 10-20 H (0-5/HPF) /HPF Ur Epithelial Cells Moderate H (NOT SEEN) /HPF Urine Bacteria Moderate H (0-FEW/HPF) /HPF Influenza Type A RNA (NEGATIVE) Influenza Type B RNA (NEGATIVE) SARS-CoV-2 RNA (HERMINIA) (NEGATIVE) Meds: Medications Discontinued Medications Generic Name Dose Route Start Last Admin Trade Name Freq PRN Reason Stop Dose Admin Albuterol Confirm 07/30/21 21:34 Albuterol 6.7 Gm Inhaler Administered 07/30/21 21:35 Dose 6.7 gm INH .STK-MED ONE Amoxicillin/Clavulanate Potassium Confirm 07/30/21 21:49 Amoxicillin/Clavulanate K 875-125 Mg Tab Administered 07/30/21 21:50 Dose 3 tab .ROUTE .STK-MED ONE Departure - Departure Time of Disposition: 21:39 Disposition: Home, Self-Care 01 Condition: Good Clinical Impression: URI (upper respiratory infection), Bronchitis - Discharge Information *PRESCRIPTION DRUG MONITORING PROGRAM REVIEWED*: No *COPY OF PRESCRIPTION DRUG MONITORING REPORT IN PATIENT KENY: No Instructions: Viral Respiratory Infection, [id number] Forms: ED Department Discharge Additional Instructions: tylenol 500mg every 4 hours as needed for discomfort albuterol inhaler every 4 hours as needed for cough wheeze muccinex for psot nasal drainage congestion per label instructions humidifier follow up next week if not improving Sepsis Event Note (ED) - Focused Exam Vital Signs: Vital Signs Temp Pulse Resp BP Pulse Ox 07/30/21 19:51 98.2 F 69 18 174/86 H 98 - My Orders Last 24 Hours: My Active Orders 07/30/21 20:00 CULTURE BLOOD [BC] Stat 07/30/21 21:32 CULTURE URINE [RM] Stat - Assessment/Plan Last 24 Hours: My Active Orders 07/30/21 20:00 CULTURE BLOOD [BC] Stat 07/30/21 21:32 CULTURE URINE [RM] Stat
[2021-07-30 19:54] VITALS: BP 174/86; PULSE 69
[2021-07-30 20:21] LABS: ANION GAP 15.3 mEq/L (7-13); CHLORIDE,CL 100 mmol/L (98-107); SODIUM,NA 138 mmol/L (136-145)
[2021-07-30 20:22] LABS: CORONAVIRUS COVID-19 NAA NEGATIVE (NEGATIVE)
[2021-07-30] MEDS ORDERED: Albuterol 6.7 GM Inhaler INH ONE (21:34)
[2021-07-30] MEDS ORDERED: Amoxicillin/Clavulanate K 875-125 MG Tab ONE (21:49)
--- NOTE | 2021-07-30 22:05 | CR ---
PROCEDURE INFORMATION: Exam: XR Chest Exam date and time: 07/30/2021 9:31 PM Age: 60 years old Clinical indication: Cough and other: Covid and flu negative; Additional info: Recent cold, cough TECHNIQUE: Imaging protocol: XR of the chest. Views: 2 views. COMPARISON: No relevant prior studies available. FINDINGS: Lungs: Unremarkable. No consolidation. Pleural spaces: Unremarkable. No pleural effusion. No pneumothorax. Heart/Mediastinum: Unremarkable. No cardiomegaly. Bones/joints: Degenerative changes are noted in the lower thoracic spine. IMPRESSION: No acute findings.
== END 2021-07-30 21:52 | disposition home or self-care (01) ==
LOC: DL.ED 19:24
DX: J40 Bronchitis, not specified as acute or chronic (principal); J06.9 Acute upper respiratory infection, unspecified; I10 Essential (primary) hypertension; K21.9 Gastro-esophageal reflux disease without esophagitis; E11.9 Type 2 diabetes mellitus without complications; E66.9 Obesity, unspecified; Z68.34 Body mass index [BMI] 34.0-34.9, adult; Z20.822 Contact with and (suspected) exposure to COVID-19; Z79.899 Other long term (current) drug therapy; Z88.8 Allergy status to other drugs, medicaments and biological substances; Z88.1 Allergy status to other antibiotic agents
CPT/HCPCS: 0240U; 36415; 71046; 80053; 81001; 83605; 85025; 87040; 87086; 99283; A9270

== ENCOUNTER 2021-08-17 23:45 | Emergency (ER) | payer MEDICAID ==
[2021-08-17] MEDS ORDERED: hydrOXYzine HCl 25 MG Tab PO ONE (23:46)
[2021-08-18 00:35] VITALS: BP 131/75; PULSE 81
[2021-08-18 01:22] LABS: ANION GAP 13.1 mEq/L (7-13); CHLORIDE,CL 103 mmol/L (98-107); SODIUM,NA 140 mmol/L (136-145)
[2021-08-18] MEDS ORDERED: Potassium Chloride 10 MEQ Tab.ER PO ONE (01:31)
[2021-08-18] MEDS ORDERED: hydrOXYzine HCl 25 MG Tab ONE (02:21)
== END 2021-08-18 02:29 | disposition home or self-care (01) ==
LOC: DL.ED 23:45
DX: F41.9 Anxiety disorder, unspecified (principal); E87.6 Hypokalemia; I10 Essential (primary) hypertension; E11.9 Type 2 diabetes mellitus without complications; E66.9 Obesity, unspecified; Z68.30 Body mass index [BMI] 30.0-30.9, adult; Z91.041 Radiographic dye allergy status; Z88.4 Allergy status to anesthetic agent; Z91.018 Allergy to other foods; Z88.8 Allergy status to other drugs, medicaments and biological substances; Z88.6 Allergy status to analgesic agent; Z79.899 Other long term (current) drug therapy
CPT/HCPCS: 36415; 71045; 80053; 84484; 85025; 93005; 99285; A9270

== ENCOUNTER 2023-01-18 17:27 | Emergency (ER) | payer MEDICAID ==
[2023-01-18 17:51] LABS: BASOPHILS PERCENT AUTO 0.2 % (0.0-1.0); EOSINOPHILS PERCENT AUTO 1.7 % (1.0-3.0); HEMATOCRIT 39.6 % (37.0-47.0); HEMOGLOBIN 12.8 g/dL (12.0-16.0); LYMPHOCYTES PERCENT AUTO 35.3 % (20.5-50.1); MEAN CORPUSCULAR HEMOGLOBIN 25.8 pg (27.0-34.0); MEAN CORPUSCULAR HGB CONC 32.3 g/dL (33.0-35.0); MEAN CORPUSCULAR VOLUME 79.7 fL (80-100); MONOCYTES PERCENT AUTO 5.8 % (2-8); PLATELET COUNT,PLT 364 10^3/uL (150-450); RED BLOOD CELL COUNT 4.97 10^6/uL (4.2-5.4)
[2023-01-18 17:53] VITALS: BP 162/60; PULSE 77
[2023-01-18 18:14] LABS: A/G RATIO 0.9; ALBUMIN 3.7 g/dL (3.4-5.0); ANION GAP 13.4 mEq/L (7-13); BILIRUBIN TOTAL 0.3 mg/dL (0.2-1.0); BUN/CREATININE RATIO 13.1 (No establ ref range); CALCIUM 8.7 mg/dL (8.5-10.1); CREATININE 0.84 mg/dL (0.55-1.02); EST CRCL DRUG DOSING (CG) 61.5 mL/min; POTASSIUM,K 3.4 mmol/L (3.5-5.1); PROTEIN TOTAL,TP 7.9 g/dL (6.4-8.2)
== END 2023-01-18 18:43 | disposition home or self-care (01) ==
LOC: DL.ED 17:27
DX: R07.9 Chest pain, unspecified (principal); I10 Essential (primary) hypertension; E11.9 Type 2 diabetes mellitus without complications; E66.9 Obesity, unspecified; Z88.6 Allergy status to analgesic agent; Z91.041 Radiographic dye allergy status; Z88.8 Allergy status to other drugs, medicaments and biological substances; Z91.018 Allergy to other foods; Z88.4 Allergy status to anesthetic agent; Z79.899 Other long term (current) drug therapy; Z68.41 Body mass index [BMI] 40.0-44.9, adult
CPT/HCPCS: 36415; 80053; 84484; 85025; 93005; 93010; 99284; 99285

== ENCOUNTER 2023-07-29 14:09 | Emergency (ER) | payer MEDICAID ==
[2023-07-29] MEDS ORDERED: Sodium Chloride 0.9% 10 ML Syringe FLUSH PRN (14:12)
[2023-07-29 14:25] LABS: BASOPHILS PERCENT AUTO 0.2 % (0.0-1.0); EOSINOPHILS PERCENT AUTO 1.1 % (1.0-3.0); HEMATOCRIT 38.5 % (37.0-47.0); LYMPHOCYTES PERCENT AUTO 35.3 % (20.5-50.1); MEAN CORPUSCULAR HEMOGLOBIN 25.3 pg (27.0-34.0); MEAN CORPUSCULAR HGB CONC 31.2 g/dL (33.0-35.0); MEAN CORPUSCULAR VOLUME 81.1 fL (80-100); MONOCYTES PERCENT AUTO 4.2 % (2-8); NEUTROPHILS PERCENT AUTO 59.2 % (42.2-75.2); PLATELET COUNT,PLT 391 10^3/uL (150-450); RED BLOOD CELL COUNT 4.75 10^6/uL (4.2-5.4); WHITE BLOOD CELL COUNT,WBC 10.8 10^3/uL (5.0-10.0)
[2023-07-29 14:33] VITALS: BP 161/71; PULSE 88
[2023-07-29 14:46] LABS: A/G RATIO 0.7; ALBUMIN 3.4 g/dL (3.4-5.0); ANION GAP 14.3 mEq/L (7-13); BILIRUBIN TOTAL 0.3 mg/dL (0.2-1.0); CALCIUM 8.7 mg/dL (8.5-10.1); CREATININE 0.77 mg/dL (0.55-1.02); EST CRCL DRUG DOSING (CG) 67.09 mL/min; POTASSIUM,K 3.3 mmol/L (3.5-5.1); PROTEIN TOTAL,TP 8.1 g/dL (6.4-8.2)
== END 2023-07-29 16:29 | disposition home or self-care (01) ==
LOC: DL.ED 14:09
DX: R07.9 Chest pain, unspecified (principal); I10 Essential (primary) hypertension; K21.9 Gastro-esophageal reflux disease without esophagitis; E11.9 Type 2 diabetes mellitus without complications; E66.9 Obesity, unspecified; Z91.018 Allergy to other foods; Z79.899 Other long term (current) drug therapy; Z91.041 Radiographic dye allergy status; Z68.41 Body mass index [BMI] 40.0-44.9, adult; Z88.5 Allergy status to narcotic agent
CPT/HCPCS: 36415; 71045; 80053; 83690; 83880; 84484; 85025; 93005; 99285; J3490